=== PATIENT | male | born 1965 | race African-American/Black ===

== ENCOUNTER 2020-08-22 10:19 | Inpatient (IN) | payer OTHER ==
[2020-08-22 11:20] VITALS: BMI 30.5
[2020-08-22] MEDS ORDERED: chlordiazePOXIDE HCL 25 MG CAPSULE PO PRN (11:56)
[2020-08-22] MEDS ORDERED: MAGNESIUM CITRATE 300 ML BOTTLE PO PRN (11:56)
[2020-08-22] MEDS ORDERED: BISMUTH SUBSALICYLATE 262 MG/15 ML BTL PO PRN (11:56)
[2020-08-22] MEDS ORDERED: MAGNESIUM HYDROX 2400MG/30ML ORAL SUSPENSION 30 ML CUP PO PRN (11:56)
[2020-08-22] MEDS ORDERED: MAG HYDROX/AL HYDROX/SIMETH 30 ML UNIT-DOSE CUP PO PRN (11:56)
[2020-08-22] MEDS ORDERED: IBUPROFEN 400 MG TABLET (FP) PO PRN (11:56)
[2020-08-22] MEDS ORDERED: ONDANSETRON *ODT* 4 MG TABLET SL PRN (11:56)
[2020-08-22] MEDS ORDERED: ACETAMINOPHEN 325 MG TABLET (FP) PO PRN ×2 (11:56)
[2020-08-22] MEDS ORDERED: MENTHOL/PHENOL 1 EACH UD MM PRN (11:56)
[2020-08-22] MEDS: chlordiazePOXIDE HCL 25 MG CAPSULE PO SCH ×3 (13:33→22:49)
[2020-08-22] MEDS: PRENATAL VITAMINS W/ FOLIC ACID TABLET (FP) PO SCH (13:35)
[2020-08-22] MEDS: HYDROCHLOROTHIAZIDE 25 MG TABLET (FP) PO SCH (13:35)
[2020-08-22] MEDS: PANTOPRAZOLE 40 MG TABLET PO SCH (13:41)
[2020-08-22] MEDS ORDERED: hydrOXYzine PAMOATE 25 MG CAPSULE (FP) PO SCH (14:00)
[2020-08-22 18:56] LABS: HEMATOCRIT 38.8 % (35.4-49); HEMOGLOBIN 13.2 GM/dL (11.7-16.9); MCHC 33.9 g/dl (32.0-35.9); MEAN CELL VOLUME 94.5 fl (80-96); MEAN PLT VOLUME 9.1 fl (7.5-11.1); PLATELET COUNT 260 K/MM3 (134-434); RBC 4.11 M/mm3 (4.00-5.60); RDW 13.5 % (11.9-15.9)
[2020-08-22 18:58] LABS: POTASSIUM 4.1 mmol/L (3.5-5.1)
[2020-08-22 19:02] LABS: CALCIUM 9.1 mg/dL (8.5-10.1)
[2020-08-22 19:03] LABS: BLOOD UREA NITROGEN 16.8 mg/dL (7-18)
[2020-08-22 19:05] LABS: CREATININE 1.3 mg/dL (0.55-1.3)
[2020-08-22 19:07] LABS: BILIRUBIN,TOTAL 1.8 mg/dL (0.2-1); TOT PROT 7.7 g/dl (6.4-8.2)
[2020-08-22] MEDS: MELATONIN 5 MG TABLETS PO SCH (22:47)
[2020-08-22] MEDS: THIAMINE HCL 100 MG TABLET (FP) PO SCH (22:47)
[2020-08-22] MEDS: hydrOXYzine PAMOATE 25 MG CAPSULE (FP) PO PRN (22:47)
[2020-08-23] MEDS: METHOCARBAMOL 500 MG TABLET PO PRN (06:08)
[2020-08-23] MEDS: chlordiazePOXIDE HCL 25 MG CAPSULE PO SCH (06:09)
[2020-08-23] MEDS ORDERED: IBUPROFEN 400 MG TABLET (FP) PO PRN (09:53)
[2020-08-23] MEDS ORDERED: diazePAM 5 MG TABLET PO PRN (09:55)
[2020-08-23] MEDS ORDERED: LIDOCAINE 5% TOPICAL PATCH TP SCH (10:00)
[2020-08-23] MEDS: PANTOPRAZOLE 40 MG TABLET PO SCH (10:13)
[2020-08-23] MEDS: PRENATAL VITAMINS W/ FOLIC ACID TABLET (FP) PO SCH (10:13)
[2020-08-23] MEDS: HYDROCHLOROTHIAZIDE 25 MG TABLET (FP) PO SCH (11:09)
[2020-08-23] MEDS: diazePAM 5 MG TABLET PO SCH ×2 (17:31→23:11)
[2020-08-23] MEDS ORDERED: LIDOCAINE PATCH REMOVAL MC SCH (22:00)
[2020-08-23] MEDS: MELATONIN 5 MG TABLETS PO SCH (23:10)
[2020-08-23] MEDS: THIAMINE HCL 100 MG TABLET (FP) PO SCH (23:11)
[2020-08-24] MEDS: hydrOXYzine PAMOATE 25 MG CAPSULE (FP) PO PRN (00:33)
[2020-08-24] MEDS: METHOCARBAMOL 500 MG TABLET PO PRN (00:33)
[2020-08-24] MEDS ORDERED: chlordiazePOXIDE HCL 25 MG CAPSULE PO SCH (05:00)
[2020-08-24] MEDS: diazePAM 5 MG TABLET PO SCH (06:41)
[2020-08-24 07:10] VITALS: BP 119/72; PULSE 76; TEMP 97.7
[2020-08-25] MEDS ORDERED: chlordiazePOXIDE HCL 10 MG CAPSULE PO PRN
[2020-08-25] MEDS ORDERED: chlordiazePOXIDE HCL 10 MG CAPSULE PO SCH (05:00)
[2020-08-25] MEDS ORDERED: diazePAM 5 MG TABLET PO SCH (06:00)
[2020-08-26] MEDS ORDERED: chlordiazePOXIDE HCL 10 MG CAPSULE PO SCH (05:00)
[2020-08-26] MEDS ORDERED: diazePAM 5 MG TABLET PO SCH (06:00)
[2020-08-27] MEDS ORDERED: chlordiazePOXIDE HCL 10 MG CAPSULE PO ONE (05:00)
[2020-08-27] MEDS ORDERED: diazePAM 5 MG TABLET PO ONE (06:00)
== END 2020-08-24 09:12 | disposition left against medical advice (07) | DRG 770 ==
LOC: YASAS 10:19 → Y3N 12:17
PROVIDERS: ADMIT Allergy & Immunology; ATTEND Allergy & Immunology
PROC: HZ2ZZZZ Detoxification Services for Substance Abuse Treatment (ICD-10-PCS; principal; 2020-08-22)
DX: F10.230 Alcohol dependence with withdrawal, uncomplicated (principal); F14.20 Cocaine dependence, uncomplicated; F17.210 Nicotine dependence, cigarettes, uncomplicated; I10 Essential (primary) hypertension; K21.9 Gastro-esophageal reflux disease without esophagitis; M54.5 Low back pain; G89.29 Other chronic pain; Z91.018 Allergy to other foods; Z56.0 Unemployment, unspecified
CPT/HCPCS: 36415; 80053; 85027; 86780; 87389; C9803; U0003

== ENCOUNTER 2020-09-19 17:53 | Inpatient (IN) | payer OTHER ==
[2020-09-19 19:19] VITALS: BMI 32.1
[2020-09-19] MEDS ORDERED: LOPERAMIDE HCL 2 MG CAPSULE PO PRN (23:48)
[2020-09-19] MEDS ORDERED: MAG HYDROX/AL HYDROX/SIMETH 30 ML UNIT-DOSE CUP PO PRN (23:48)
[2020-09-19] MEDS ORDERED: guaiFENesin 200 MG/10 ML 10 ML UNIT-DOSE CUPS PO PRN (23:48)
[2020-09-19] MEDS ORDERED: MAGNESIUM HYDROX 2400MG/30ML ORAL SUSPENSION 30 ML CUP PO PRN (23:48)
[2020-09-19] MEDS ORDERED: P-EPHED 60MG/TRIPROLIDI 2.5MG TABLET PO PRN (23:48)
[2020-09-19] MEDS ORDERED: hydrOXYzine PAMOATE 25 MG CAPSULE (FP) PO PRN (23:48)
[2020-09-19] MEDS ORDERED: MAGNESIUM CITRATE 300 ML BOTTLE PO PRN (23:48)
[2020-09-20] MEDS ORDERED: TUBERCULIN PPD 5 TU/0.1ML VIAL ID ONE (00:32)
[2020-09-20] MEDS: MELATONIN 5 MG TABLETS PO SCH ×2 (00:40→22:03)
[2020-09-20] MEDS: IBUPROFEN 400 MG TABLET (FP) PO PRN ×2 (04:42→17:25)
[2020-09-20] MEDS: PRENATAL VITAMINS W/ FOLIC ACID TABLET (FP) PO SCH (10:04)
[2020-09-20] MEDS: ACETAMINOPHEN 325 MG TABLET (FP) PO PRN ×2 (10:06→21:25)
[2020-09-20] MEDS ORDERED: METHYL SALICYLATE/MENTHOL OINT 30 GM TUBE TP ONE (11:15)
[2020-09-20 11:42] LABS: HEMATOCRIT 36.1 % (35.4-49); HEMOGLOBIN 12.5 GM/dL (11.7-16.9); MCH 32.3 pg (25.7-33.7); MCHC 34.5 g/dl (32.0-35.9); MEAN CELL VOLUME 93.7 fl (80-96); MEAN PLT VOLUME 8.8 fl (7.5-11.1); PLATELET COUNT 257 K/MM3 (134-434); RBC 3.86 M/mm3 (4.00-5.60); RDW 13.6 % (11.9-15.9); WHITE BLOOD COUNT 5.1 K/mm3 (4.0-10.0)
[2020-09-20 11:48] LABS: ALBUMIN 3.7 g/dl (3.4-5.0); BLOOD UREA NITROGEN 15.2 mg/dL (7-18)
[2020-09-20 11:50] LABS: BILIRUBIN,TOTAL 1.2 mg/dL (0.2-1); CALCIUM 8.8 mg/dL (8.5-10.1); TOT PROT 7.2 g/dl (6.4-8.2)
[2020-09-20 11:51] LABS: CREATININE 1.4 mg/dL (0.55-1.3)
[2020-09-20 11:55] LABS: POTASSIUM 3.6 mmol/L (3.5-5.1)
[2020-09-20] MEDS ORDERED: THIAMINE HCL 100 MG TABLET (FP) PO SCH (22:00)
[2020-09-20] MEDS: METHYL SALICYLATE/MENTHOL OINT 30 GM TUBE TP SCH (22:03)
[2020-09-21 00:26] LABS: URINE APPEARANCE CLEAR; URINE BILIRUBIN NEGATIVE (NEGATIVE); URINE COLOR YELLOW; URINE GLUCOSE (UA) NEGATIVE (NEGATIVE); URINE KETONE NEGATIVE (NEGATIVE); URINE LEUK ESTERASE NEGATIVE (NEGATIVE); URINE NITRITE NEGATIVE (NEGATIVE); URINE PROTEIN NEGATIVE (NEGATIVE)
[2020-09-21] MEDS: IBUPROFEN 400 MG TABLET (FP) PO PRN (06:13)
[2020-09-21 07:16] VITALS: BP 139/82; PULSE 76; TEMP 98.2
[2020-09-21] MEDS ORDERED: PT OWN MED DRAWER 7, Y5N ONE ×2 (09:37→10:22)
[2020-09-21] MEDS: METHYL SALICYLATE/MENTHOL OINT 30 GM TUBE TP SCH (10:11)
[2020-09-21] MEDS: PRENATAL VITAMINS W/ FOLIC ACID TABLET (FP) PO SCH (10:12)
== END 2020-09-21 19:46 | disposition home or self-care (01) | DRG 772 ==
LOC: YASAS 17:53 → Y5N 23:21
PROVIDERS: ADMIT Allergy & Immunology; ATTEND Allergy & Immunology
PROC: HZ42ZZZ Group Counseling for Substance Abuse Treatment, Cognitive-Behavioral (ICD-10-PCS; principal; 2020-09-19)
DX: F10.20 Alcohol dependence, uncomplicated (principal); F14.20 Cocaine dependence, uncomplicated; I10 Essential (primary) hypertension; K21.9 Gastro-esophageal reflux disease without esophagitis; I83.92 Asymptomatic varicose veins of left lower extremity; R60.0 Localized edema; M79.604 Pain in right leg; M79.605 Pain in left leg; Z87.891 Personal history of nicotine dependence; Z56.0 Unemployment, unspecified; Z59.0 Homelessness; Z91.018 Allergy to other foods
CPT/HCPCS: 36415; 80053; 81003; 85027; 86780; C9803; U0003

== ENCOUNTER 2020-10-18 09:43 | Inpatient (IN) | payer OTHER ==
[2020-10-18 10:14] VITALS: BMI 32.5
[2020-10-18] MEDS ORDERED: MAGNESIUM HYDROX 2400MG/30ML ORAL SUSPENSION 30 ML CUP PO PRN (11:41)
[2020-10-18] MEDS ORDERED: METHOCARBAMOL 500 MG TABLET PO PRN (11:41)
[2020-10-18] MEDS ORDERED: MAGNESIUM CITRATE 300 ML BOTTLE PO PRN (11:41)
[2020-10-18] MEDS ORDERED: ONDANSETRON *ODT* 4 MG TABLET SL PRN (11:41)
[2020-10-18] MEDS ORDERED: NICOTINE POLACRILEX 2 MG GUM BUC PRN (11:41)
[2020-10-18] MEDS ORDERED: IBUPROFEN 400 MG TABLET (FP) PO PRN (11:41)
[2020-10-18] MEDS ORDERED: chlordiazePOXIDE HCL 25 MG CAPSULE PO PRN (11:41)
[2020-10-18] MEDS ORDERED: ACETAMINOPHEN 325 MG TABLET (FP) PO PRN ×2 (11:41)
[2020-10-18] MEDS ORDERED: MENTHOL/PHENOL 1 EACH UD MM PRN (11:41)
[2020-10-18] MEDS ORDERED: BISMUTH SUBSALICYLATE 524 MG/30 ML UD PO PRN (11:41)
[2020-10-18] MEDS ORDERED: MAG HYDROX/AL HYDROX/SIMETH 30 ML UNIT-DOSE CUP PO PRN (11:41)
[2020-10-18] MEDS ORDERED: PRENATAL VITAMINS W/ FOLIC ACID TABLET (FP) PO SCH (11:45)
[2020-10-18] MEDS: chlordiazePOXIDE HCL 25 MG CAPSULE PO SCH ×2 (12:41→18:18)
[2020-10-18] MEDS: hydrOXYzine PAMOATE 25 MG CAPSULE (FP) PO SCH ×2 (13:05→18:18)
[2020-10-18 14:19] LABS: HEMATOCRIT 37.9 % (35.4-49); HEMOGLOBIN 12.5 GM/dL (11.7-16.9); MCH 31.7 pg (25.7-33.7); MCHC 33.1 g/dl (32.0-35.9); MEAN CELL VOLUME 95.8 fl (80-96); MEAN PLT VOLUME 9.1 fl (7.5-11.1); PLATELET COUNT 246 K/MM3 (134-434); RBC 3.95 M/mm3 (4.00-5.60); RDW 14.3 % (11.9-15.9); WHITE BLOOD COUNT 4.5 K/mm3 (4.0-10.0)
[2020-10-18 14:22] LABS: POTASSIUM 3.9 mmol/L (3.5-5.1)
[2020-10-18 14:24] LABS: CALCIUM 9.4 mg/dL (8.5-10.1)
[2020-10-18 14:25] LABS: ALBUMIN 3.9 g/dl (3.4-5.0); BLOOD UREA NITROGEN 12.6 mg/dL (7-18)
[2020-10-18 14:28] LABS: CREATININE 1.2 mg/dL (0.55-1.3)
[2020-10-18 14:29] LABS: BILIRUBIN,TOTAL 0.4 mg/dL (0.2-1); TOT PROT 7.6 g/dl (6.4-8.2)
[2020-10-18 17:32] VITALS: BP 108/68; PULSE 80; TEMP 96.8
[2020-10-18] MEDS ORDERED: MELATONIN 5 MG TABLETS PO SCH (22:00)
[2020-10-18] MEDS ORDERED: THIAMINE HCL 100 MG TABLET (FP) PO SCH (22:00)
[2020-10-19] MEDS ORDERED: HYDROCHLOROTHIAZIDE 25 MG TABLET (FP) PO SCH (10:00)
[2020-10-20] MEDS ORDERED: chlordiazePOXIDE HCL 25 MG CAPSULE PO SCH (05:00)
[2020-10-21] MEDS ORDERED: chlordiazePOXIDE HCL 10 MG CAPSULE PO PRN
[2020-10-21] MEDS ORDERED: chlordiazePOXIDE HCL 10 MG CAPSULE PO SCH (05:00)
[2020-10-22] MEDS ORDERED: chlordiazePOXIDE HCL 10 MG CAPSULE PO SCH (05:00)
[2020-10-23] MEDS ORDERED: chlordiazePOXIDE HCL 10 MG CAPSULE PO ONE (05:00)
== END 2020-10-18 18:55 | disposition left against medical advice (07) | DRG 770 ==
LOC: YASAS 09:43 → Y3N 12:04
PROVIDERS: ADMIT Allergy & Immunology; ATTEND Allergy & Immunology
PROC: HZ2ZZZZ Detoxification Services for Substance Abuse Treatment (ICD-10-PCS; principal; 2020-10-18)
DX: F10.230 Alcohol dependence with withdrawal, uncomplicated (principal); F14.20 Cocaine dependence, uncomplicated; F17.210 Nicotine dependence, cigarettes, uncomplicated; F32.9 Major depressive disorder, single episode, unspecified; I10 Essential (primary) hypertension; K21.9 Gastro-esophageal reflux disease without esophagitis; I83.92 Asymptomatic varicose veins of left lower extremity; M54.5 Low back pain; Z59.0 Homelessness
CPT/HCPCS: 36415; 80053; 85027; 86780; C9803; U0003; U0005

== ENCOUNTER 2020-12-14 19:54 | Inpatient (IN) | payer OTHER ==
[2020-12-14] MEDS ORDERED: MENTHOL/PHENOL 1 EACH UD MM PRN (21:48)
[2020-12-14] MEDS ORDERED: IBUPROFEN 400 MG TABLET (FP) PO PRN (21:48)
[2020-12-14] MEDS ORDERED: ACETAMINOPHEN 325 MG TABLET (FP) PO PRN ×2 (21:48)
[2020-12-14] MEDS ORDERED: BISMUTH SUBSALICYLATE 524 MG/30 ML PO PRN (21:48)
[2020-12-14] MEDS ORDERED: ONDANSETRON *ODT* 4 MG TABLET SL PRN (21:48)
[2020-12-14] MEDS ORDERED: MAGNESIUM CITRATE 300 ML BOTTLE PO PRN (21:48)
[2020-12-14] MEDS ORDERED: MAG HYDROX/AL HYDROX/SIMETH 30 ML UNIT-DOSE CUP PO PRN (21:48)
[2020-12-14] MEDS ORDERED: MAGNESIUM HYDROX 2400MG/30ML ORAL SUSPENSION 30 ML CUP PO PRN (21:48)
[2020-12-14] MEDS ORDERED: diazePAM 5 MG TABLET PO PRN (21:48)
[2020-12-14 23:05] VITALS: BMI 30.8
[2020-12-15] MEDS: MELATONIN 5 MG TABLETS PO SCH ×2 (00:21→22:30)
[2020-12-15] MEDS: THIAMINE HCL 100 MG TABLET (FP) PO SCH ×2 (00:21→22:30)
[2020-12-15] MEDS: diazePAM 5 MG TABLET PO SCH ×5 (00:22→22:30)
[2020-12-15] MEDS: METHOCARBAMOL 500 MG TABLET PO PRN ×2 (07:22→19:34)
[2020-12-15] MEDS ORDERED: PRENATAL VITAMINS W/ FOLIC ACID TABLET (FP) PO SCH (10:00)
[2020-12-15] MEDS ORDERED: HYDROCHLOROTHIAZIDE 25 MG TABLET (FP) PO SCH (10:00)
[2020-12-16] MEDS: METHOCARBAMOL 500 MG TABLET PO PRN (05:28)
[2020-12-16] MEDS ORDERED: diazePAM 5 MG TABLET PO SCH (06:00)
[2020-12-16 06:39] VITALS: BP 117/78; PULSE 77; TEMP 97
[2020-12-17] MEDS ORDERED: diazePAM 5 MG TABLET PO SCH (06:00)
[2020-12-18] MEDS ORDERED: diazePAM 5 MG TABLET PO ONE (06:00)
== END 2020-12-16 06:34 | disposition left against medical advice (07) | DRG 770 ==
LOC: YASAS 19:54 → Y3N 22:57
PROVIDERS: ADMIT Allergy & Immunology; ATTEND Allergy & Immunology
PROC: HZ2ZZZZ Detoxification Services for Substance Abuse Treatment (ICD-10-PCS; principal; 2020-12-14)
DX: F10.230 Alcohol dependence with withdrawal, uncomplicated (principal); F14.20 Cocaine dependence, uncomplicated; G47.00 Insomnia, unspecified; I10 Essential (primary) hypertension; K21.9 Gastro-esophageal reflux disease without esophagitis; M54.5 Low back pain; V59.9XXA Occupant (driver) (passenger) of pick-up truck or van injured in unspecified traffic accident, initial encounter; Y92.414 Local residential or business street as the place of occurrence of the external cause; Z87.891 Personal history of nicotine dependence; Z56.0 Unemployment, unspecified; Z59.0 Homelessness
CPT/HCPCS: 93005; 93010; C9803; U0003; U0005

== ENCOUNTER 2020-12-15 11:43 | Emergency (ER) | payer OTHER ==
[2020-12-15 12:13] VITALS: BMI 33.7
[2020-12-15] MEDS ORDERED: ACETAMINOPHEN 500 MG TABLET (FP) PO ONE (12:36)
[2020-12-15] MEDS ORDERED: ACETAMINOPHEN 325 MG TABLET (FP) ONE ×2 (12:57→13:02)
[2020-12-15 14:18] VITALS: BP 118/76; PULSE 60; TEMP 98.2
== END 2020-12-15 14:18 | disposition home or self-care (01) ==
LOC: JER 11:43
DX: M54.5 Low back pain (principal)
CPT/HCPCS: 72100-TC-FY; 99284-25

== ENCOUNTER 2021-05-21 14:00 | Inpatient (IN) | payer OTHER ==
[2021-05-21 16:14] VITALS: BMI 32.2
[2021-05-21] MEDS ORDERED: METHOCARBAMOL 500 MG TABLET PO PRN (21:47)
[2021-05-21] MEDS ORDERED: IBUPROFEN 400 MG TABLET (FP) PO PRN (21:47)
[2021-05-21] MEDS ORDERED: MAG HYDROX/AL HYDROX/SIMETH 30 ML UNIT-DOSE CUP PO PRN (21:47)
[2021-05-21] MEDS ORDERED: MAGNESIUM CITRATE 300 ML BOTTLE PO PRN (21:47)
[2021-05-21] MEDS ORDERED: BISMUTH SUBSALICYLATE 524 MG/30 ML PO PRN (21:47)
[2021-05-21] MEDS ORDERED: MAGNESIUM HYDROX 2400MG/30ML ORAL SUSPENSION 30 ML CUP PO PRN (21:47)
[2021-05-21] MEDS ORDERED: diazePAM 5 MG TABLET PO PRN (21:47)
[2021-05-21] MEDS ORDERED: ACETAMINOPHEN 325 MG TABLET (FP) PO PRN ×2 (21:47)
[2021-05-21] MEDS ORDERED: MENTHOL/PHENOL 1 EACH UD MM PRN (21:47)
[2021-05-21] MEDS ORDERED: ONDANSETRON *ODT* 4 MG TABLET SL PRN (21:47)
[2021-05-21] MEDS ORDERED: hydrOXYzine PAMOATE 25 MG CAPSULE (FP) PO PRN (21:47)
[2021-05-21] MEDS ORDERED: MELATONIN 5 MG TABLETS PO PRN (21:47)
[2021-05-21] MEDS ORDERED: THIAMINE HCL 100 MG TABLET (FP) PO SCH (22:00)
[2021-05-21] MEDS: diazePAM 5 MG TABLET PO SCH (22:52)
[2021-05-22 05:43] VITALS: BP 108/58; PULSE 57; TEMP 97.8
[2021-05-22] MEDS: diazePAM 5 MG TABLET PO SCH (06:00)
[2021-05-22] MEDS ORDERED: PRENATAL VITAMINS W/ FOLIC ACID TABLET (FP) PO SCH (10:00)
[2021-05-22] MEDS ORDERED: HYDROCHLOROTHIAZIDE 25 MG TABLET (FP) PO SCH (10:00)
[2021-05-23] MEDS ORDERED: diazePAM 5 MG TABLET PO SCH (06:00)
[2021-05-24] MEDS ORDERED: diazePAM 5 MG TABLET PO SCH (06:00)
[2021-05-25] MEDS ORDERED: diazePAM 5 MG TABLET PO ONE (06:00)
== END 2021-05-22 09:00 | disposition left against medical advice (07) | DRG 770 ==
LOC: YASAS 14:00 → Y6N 20:57
PROVIDERS: ADMIT Allergy & Immunology; ATTEND Allergy & Immunology
PROC: HZ2ZZZZ Detoxification Services for Substance Abuse Treatment (ICD-10-PCS; principal; 2021-05-21)
DX: F10.230 Alcohol dependence with withdrawal, uncomplicated (principal); F14.20 Cocaine dependence, uncomplicated; I10 Essential (primary) hypertension; K21.9 Gastro-esophageal reflux disease without esophagitis; M54.50 Low back pain, unspecified; G89.29 Other chronic pain
CPT/HCPCS: C9803; U0003; U0005

== ENCOUNTER 2021-07-03 17:59 | Inpatient (IN) | payer OTHER ==
[2021-07-03 18:15] VITALS: BMI 32.1
[2021-07-03] MEDS ORDERED: MAG HYDROX/AL HYDROX/SIMETH 30 ML UNIT-DOSE CUP PO PRN (18:30)
[2021-07-03] MEDS ORDERED: BISMUTH SUBSALICYLATE 524 MG/30 ML PO PRN (18:30)
[2021-07-03] MEDS ORDERED: MAGNESIUM CITRATE 300 ML BOTTLE PO PRN (18:30)
[2021-07-03] MEDS ORDERED: hydrOXYzine PAMOATE 25 MG CAPSULE (FP) PO PRN (18:30)
[2021-07-03] MEDS ORDERED: P-EPHED 60MG/TRIPROLIDI 2.5MG TABLET PO PRN (18:30)
[2021-07-03] MEDS ORDERED: ACETAMINOPHEN 325 MG TABLET (FP) PO PRN ×2 (18:30)
[2021-07-03] MEDS ORDERED: MENTHOL/PHENOL 1 EACH UD MM PRN (18:30)
[2021-07-03] MEDS ORDERED: ONDANSETRON *ODT* 4 MG TABLET SL PRN (18:30)
[2021-07-03] MEDS ORDERED: MAGNESIUM HYDROX 2400MG/30ML ORAL SUSPENSION 30 ML CUP PO PRN (18:30)
[2021-07-03] MEDS ORDERED: diazePAM 5 MG TABLET PO PRN (18:31)
[2021-07-03] MEDS: IBUPROFEN 400 MG TABLET (FP) PO PRN (20:03)
[2021-07-03] MEDS: MELATONIN 5 MG TABLETS PO SCH (23:02)
[2021-07-03] MEDS: diazePAM 5 MG TABLET PO SCH (23:03)
[2021-07-03] MEDS: THIAMINE HCL 100 MG TABLET (FP) PO SCH (23:03)
[2021-07-04] MEDS: diazePAM 5 MG TABLET PO SCH ×3 (06:06→19:54)
[2021-07-04] MEDS: PRENATAL VITAMINS W/ FOLIC ACID TABLET (FP) PO SCH (10:38)
[2021-07-04] MEDS: METHOCARBAMOL 500 MG TABLET PO PRN (10:38)
[2021-07-04] MEDS: HYDROCHLOROTHIAZIDE 25 MG TABLET (FP) PO SCH (10:38)
[2021-07-04 10:52] LABS: ALBUMIN 3.5 g/dl (3.4-5.0); BLOOD UREA NITROGEN 20.6 mg/dL (7-18); CALCIUM 9.1 mg/dL (8.5-10.1)
[2021-07-04 10:53] LABS: CREATININE 1.1 mg/dL (0.55-1.3)
[2021-07-04 10:58] LABS: BILIRUBIN,TOTAL 0.9 mg/dL (0.2-1)
[2021-07-04 10:59] LABS: HEMATOCRIT 37.3 % (35.4-49); HEMOGLOBIN 12.6 GM/dL (11.7-16.9); MCH 31.7 pg (25.7-33.7); MCHC 33.9 g/dl (32.0-35.9); MEAN CELL VOLUME 93.4 fl (80-96); MEAN PLT VOLUME 8.5 fl (7.5-11.1); PLATELET COUNT 233 10^3/uL (134-434); RBC 3.99 M/mm3 (4.00-5.60); RDW 13.8 % (11.9-15.9)
[2021-07-04] MEDS: amLODIPine BESYLATE 10 MG TABLET (FP) PO SCH (15:27)
[2021-07-04] MEDS: THIAMINE HCL 100 MG TABLET (FP) PO SCH (22:29)
[2021-07-04] MEDS: MELATONIN 5 MG TABLETS PO SCH (22:30)
[2021-07-05] MEDS: diazePAM 5 MG TABLET PO SCH ×3 (01:03→19:08)
[2021-07-05] MEDS: METHOCARBAMOL 500 MG TABLET PO PRN (07:31)
[2021-07-05] MEDS: IBUPROFEN 400 MG TABLET (FP) PO PRN (07:31)
[2021-07-05] MEDS: PRENATAL VITAMINS W/ FOLIC ACID TABLET (FP) PO SCH (10:41)
[2021-07-05] MEDS: HYDROCHLOROTHIAZIDE 25 MG TABLET (FP) PO SCH (10:42)
[2021-07-05] MEDS: amLODIPine BESYLATE 10 MG TABLET (FP) PO SCH (10:42)
[2021-07-05 18:53] VITALS: BP 118/79; PULSE 103; TEMP 96.9
[2021-07-06] MEDS ORDERED: diazePAM 5 MG TABLET PO ONE (06:00)
== END 2021-07-05 18:25 | disposition left against medical advice (07) | DRG 770 ==
LOC: YASAS 17:59 → Y6N 19:00 → UNDOADMIN 19:00
PROVIDERS: ADMIT Allergy & Immunology; ATTEND Allergy & Immunology
PROC: HZ2ZZZZ Detoxification Services for Substance Abuse Treatment (ICD-10-PCS; principal; 2021-07-03)
DX: F10.230 Alcohol dependence with withdrawal, uncomplicated (principal); F14.20 Cocaine dependence, uncomplicated; I10 Essential (primary) hypertension; K21.9 Gastro-esophageal reflux disease without esophagitis; R00.0 Tachycardia, unspecified; E66.9 Obesity, unspecified; Z68.32 Body mass index [BMI] 32.0-32.9, adult; Z91.018 Allergy to other foods; Z56.0 Unemployment, unspecified
CPT/HCPCS: 36415; 80053; 85027; 86780; C9803; Q0162; U0003; U0005

== ENCOUNTER 2021-09-06 18:09 | Inpatient (IN) | payer OTHER ==
[2021-09-06 18:55] VITALS: BMI 32.2
[2021-09-06] MEDS ORDERED: BISMUTH SUBSALICYLATE 524 MG/30 ML PO PRN (20:16)
[2021-09-06] MEDS ORDERED: MAGNESIUM CITRATE 300 ML BOTTLE PO PRN (20:16)
[2021-09-06] MEDS ORDERED: LOPERAMIDE HCL 2 MG CAPSULE PO PRN (20:16)
[2021-09-06] MEDS ORDERED: MENTHOL/PHENOL 1 EACH UD MM PRN (20:16)
[2021-09-06] MEDS ORDERED: hydrOXYzine PAMOATE 25 MG CAPSULE (FP) PO PRN (20:16)
[2021-09-06] MEDS ORDERED: MELATONIN 5 MG TABLETS PO PRN (20:16)
[2021-09-06] MEDS ORDERED: ONDANSETRON *ODT* 4 MG TABLET SL PRN (20:16)
[2021-09-06] MEDS ORDERED: MAGNESIUM HYDROX 2400MG/30ML ORAL SUSPENSION 30 ML CUP PO PRN (20:16)
[2021-09-06] MEDS ORDERED: ACETAMINOPHEN 325 MG TABLET (FP) PO PRN ×2 (20:16)
[2021-09-06] MEDS ORDERED: diazePAM 5 MG TABLET PO PRN (20:18)
[2021-09-06] MEDS ORDERED: ONDANSETRON *ODT* 4 MG TABLET ONE (23:23)
[2021-09-06] MEDS ORDERED: diazePAM 5 MG TABLET ONE (23:23)
[2021-09-06] MEDS: THIAMINE HCL 100 MG TABLET (FP) PO SCH (23:27)
[2021-09-06] MEDS: diazePAM 5 MG TABLET PO SCH (23:28)
[2021-09-07] MEDS: diazePAM 5 MG TABLET PO SCH ×4 (06:54→22:21)
[2021-09-07] MEDS: IBUPROFEN 400 MG TABLET (FP) PO PRN (06:55)
[2021-09-07] MEDS: METHOCARBAMOL 500 MG TABLET PO PRN (10:58)
[2021-09-07] MEDS: PRENATAL VITAMINS W/ FOLIC ACID TABLET (FP) PO SCH (10:59)
[2021-09-07] MEDS: THIAMINE HCL 100 MG TABLET (FP) PO SCH (22:21)
[2021-09-08] MEDS: IBUPROFEN 400 MG TABLET (FP) PO PRN ×2 (01:54→20:47)
[2021-09-08] MEDS: diazePAM 5 MG TABLET PO SCH ×3 (06:38→22:06)
[2021-09-08] MEDS: PRENATAL VITAMINS W/ FOLIC ACID TABLET (FP) PO SCH (11:08)
[2021-09-08] MEDS: THIAMINE HCL 100 MG TABLET (FP) PO SCH (22:07)
[2021-09-09] MEDS: METHOCARBAMOL 500 MG TABLET PO PRN (04:05)
[2021-09-09] MEDS ORDERED: diazePAM 5 MG TABLET PO SCH (06:00)
[2021-09-09] MEDS: PRENATAL VITAMINS W/ FOLIC ACID TABLET (FP) PO SCH (10:33)
[2021-09-09] MEDS ORDERED: diphenhydrAMINE HCL 50 MG CAPSULE PO PRN (15:50)
[2021-09-09] MEDS ORDERED: diphenhydrAMINE HCL 25 MG CAPSULE (FP) PO PRN (15:53)
[2021-09-09] MEDS ORDERED: LOPERAMIDE HCL 2 MG CAPSULE PO ONE (15:58)
[2021-09-09] MEDS ORDERED: LORazepam 0.5 MG TABLET PO ONE (18:00)
[2021-09-09] MEDS: HYDROCHLOROTHIAZIDE 12.5 MG CAPSULE (FP) PO SCH (19:08)
[2021-09-10] MEDS: THIAMINE HCL 100 MG TABLET (FP) PO SCH (00:06)
[2021-09-10] MEDS: IBUPROFEN 400 MG TABLET (FP) PO PRN (03:40)
[2021-09-10] MEDS ORDERED: LORazepam 0.5 MG TABLET PO ONE (05:00)
[2021-09-10] MEDS ORDERED: diazePAM 5 MG TABLET PO ONE (06:00)
[2021-09-10] MEDS: MAG HYDROX/AL HYDROX/SIMETH 30 ML UNIT-DOSE CUP PO PRN ×2 (06:00→13:15)
[2021-09-10] MEDS: PRENATAL VITAMINS W/ FOLIC ACID TABLET (FP) PO SCH (09:37)
[2021-09-10] MEDS: HYDROCHLOROTHIAZIDE 12.5 MG CAPSULE (FP) PO SCH (09:37)
[2021-09-10 16:39] LABS: HEMATOCRIT 37.1 % (35.4-49); HEMOGLOBIN 12.2 GM/dL (11.7-16.9); MCH 30.6 pg (25.7-33.7); MCHC 32.9 g/dl (32.0-35.9); MEAN CELL VOLUME 92.9 fl (80-96); MEAN PLT VOLUME 8.6 fl (7.5-11.1); PLATELET COUNT 312 10^3/uL (134-434); RBC 3.99 M/mm3 (4.00-5.60); RDW 14.4 % (11.9-15.9); WHITE BLOOD COUNT 3.9 K/mm3 (4.0-10.0)
[2021-09-10 16:47] LABS: ALBUMIN 3.7 g/dl (3.4-5.0); BLOOD UREA NITROGEN 9.5 mg/dL (7-18)
[2021-09-10 16:50] LABS: CREATININE 1.1 mg/dL (0.55-1.3)
[2021-09-10 16:51] LABS: BILIRUBIN,TOTAL 0.5 mg/dL (0.2-1); TOT PROT 7.4 g/dl (6.4-8.2)
[2021-09-10 17:55] VITALS: BP 128/61; PULSE 77; TEMP 97.3
== END 2021-09-10 18:45 | disposition other institution (70) | DRG 774 ==
LOC: YASAS 18:09 → Y6N 09-07 01:41
PROVIDERS: ADMIT Allergy & Immunology; ATTEND Allergy & Immunology
PROC: HZ2ZZZZ Detoxification Services for Substance Abuse Treatment (ICD-10-PCS; principal; 2021-09-07)
DX: F10.230 Alcohol dependence with withdrawal, uncomplicated (principal); F14.20 Cocaine dependence, uncomplicated; I10 Essential (primary) hypertension; K21.9 Gastro-esophageal reflux disease without esophagitis; M54.50 Low back pain, unspecified; G89.29 Other chronic pain
CPT/HCPCS: 36415; 80053; 85027; 86780; 87811; C9803; Q0162; U0003; U0005

== ENCOUNTER 2021-09-10 09:34 | Inpatient (IN) | payer OTHER ==
[2021-09-10] MEDS ORDERED: guaiFENesin 200 MG/10 ML 10 ML UNIT-DOSE CUPS PO PRN (14:56)
[2021-09-10] MEDS ORDERED: NICOTINE POLACRILEX 2 MG GUM BUC PRN (14:56)
[2021-09-10] MEDS ORDERED: MAGNESIUM HYDROX 2400MG/30ML ORAL SUSPENSION 30 ML CUP PO PRN (14:56)
[2021-09-10] MEDS ORDERED: NICOTINE 10 MG CARTRIDGE (INHALER) IH PRN (14:56)
[2021-09-10] MEDS ORDERED: MAG HYDROX/AL HYDROX/SIMETH 30 ML UNIT-DOSE CUP PO PRN (14:56)
[2021-09-10] MEDS ORDERED: hydrOXYzine PAMOATE 25 MG CAPSULE (FP) PO PRN (14:56)
[2021-09-10] MEDS ORDERED: MAGNESIUM CITRATE 300 ML BOTTLE PO PRN (14:56)
[2021-09-10] MEDS ORDERED: LOPERAMIDE HCL 2 MG CAPSULE PO PRN (14:56)
[2021-09-10] MEDS ORDERED: ACETAMINOPHEN 325 MG TABLET (FP) PO PRN (14:56)
[2021-09-10] MEDS: IBUPROFEN 400 MG TABLET (FP) PO PRN (21:45)
[2021-09-10] MEDS: THIAMINE HCL 100 MG TABLET (FP) PO SCH (21:45)
[2021-09-10] MEDS: MELATONIN 5 MG TABLETS PO SCH (21:46)
[2021-09-11] MEDS: HYDROCHLOROTHIAZIDE 12.5 MG CAPSULE (FP) PO SCH (09:14)
[2021-09-11] MEDS: PRENATAL VITAMINS W/ FOLIC ACID TABLET (FP) PO SCH (09:15)
[2021-09-11] MEDS ORDERED: ONDANSETRON *ODT* 4 MG TABLET SL PRN (11:09)
[2021-09-11] MEDS: THIAMINE HCL 100 MG TABLET (FP) PO SCH (21:18)
[2021-09-11] MEDS: MELATONIN 5 MG TABLETS PO SCH (21:18)
[2021-09-12] MEDS: PRENATAL VITAMINS W/ FOLIC ACID TABLET (FP) PO SCH (09:57)
[2021-09-12] MEDS: HYDROCHLOROTHIAZIDE 12.5 MG CAPSULE (FP) PO SCH (09:58)
[2021-09-12] MEDS ORDERED: diphenhydrAMINE HCL 50 MG CAPSULE PO PRN (10:11)
[2021-09-12] MEDS ORDERED: diphenhydrAMINE HCL 25 MG CAPSULE (FP) PO ONE (21:43)
[2021-09-12] MEDS: THIAMINE HCL 100 MG TABLET (FP) PO SCH (21:44)
[2021-09-12] MEDS ORDERED: SUVOREXANT 10 MG TABLET PO PRN (22:00)
[2021-09-13] MEDS: PRENATAL VITAMINS W/ FOLIC ACID TABLET (FP) PO SCH (10:07)
[2021-09-13] MEDS: HYDROCHLOROTHIAZIDE 12.5 MG CAPSULE (FP) PO SCH (10:07)
[2021-09-13] MEDS ORDERED: diphenhydrAMINE HCL 25 MG CAPSULE (FP) PO ONE (19:32)
[2021-09-13] MEDS: THIAMINE HCL 100 MG TABLET (FP) PO SCH (21:26)
[2021-09-14] MEDS: IBUPROFEN 400 MG TABLET (FP) PO PRN (06:33)
[2021-09-14] MEDS: PRENATAL VITAMINS W/ FOLIC ACID TABLET (FP) PO SCH (10:49)
[2021-09-14] MEDS: HYDROCHLOROTHIAZIDE 12.5 MG CAPSULE (FP) PO SCH (10:50)
[2021-09-14 16:09] LABS: SARS-CoV-2 NAA Not Detected (Not Detected)
[2021-09-14] MEDS: THIAMINE HCL 100 MG TABLET (FP) PO SCH (21:42)
[2021-09-15] MEDS: HYDROCHLOROTHIAZIDE 12.5 MG CAPSULE (FP) PO SCH (09:37)
[2021-09-15] MEDS: PRENATAL VITAMINS W/ FOLIC ACID TABLET (FP) PO SCH (09:37)
[2021-09-15] MEDS ORDERED: diphenhydrAMINE HCL 25 MG CAPSULE (FP) PO ONE (20:10)
[2021-09-15] MEDS: IBUPROFEN 400 MG TABLET (FP) PO PRN (21:31)
[2021-09-15] MEDS: diphenhydrAMINE HCL 50 MG CAPSULE PO PRN (21:33)
[2021-09-15] MEDS: THIAMINE HCL 100 MG TABLET (FP) PO SCH (21:33)
[2021-09-16] MEDS: PRENATAL VITAMINS W/ FOLIC ACID TABLET (FP) PO SCH (09:17)
[2021-09-16] MEDS: HYDROCHLOROTHIAZIDE 12.5 MG CAPSULE (FP) PO SCH (09:17)
[2021-09-16] MEDS ORDERED: diphenhydrAMINE HCL 25 MG CAPSULE (FP) PO ONE (20:41)
[2021-09-16] MEDS: HYDROCORTISONE 0.5% TOPICAL CREAM 30 GM TUBE TP SCH (22:38)
[2021-09-16] MEDS: THIAMINE HCL 100 MG TABLET (FP) PO SCH (22:39)
[2021-09-16] MEDS: diphenhydrAMINE HCL 50 MG CAPSULE PO PRN (22:40)
[2021-09-17] MEDS: HYDROCHLOROTHIAZIDE 12.5 MG CAPSULE (FP) PO SCH (09:51)
[2021-09-17] MEDS: PRENATAL VITAMINS W/ FOLIC ACID TABLET (FP) PO SCH (09:51)
[2021-09-17] MEDS: HYDROCORTISONE 0.5% TOPICAL CREAM 30 GM TUBE TP SCH ×2 (09:52→22:12)
[2021-09-17] MEDS: IBUPROFEN 400 MG TABLET (FP) PO PRN (11:26)
[2021-09-17] MEDS ORDERED: COLLOIDAL OATMEAL 1 BAR EACH TP PRN (11:27)
[2021-09-17] MEDS: CALAMINE 8% TOPICAL LOTION 177 ML BOTTLE TP PRN ×2 (14:25→22:13)
[2021-09-17] MEDS: MINERAL OIL/PETROLAT/WATER TOPICAL CREAM 113 GM JAR TP SCH (14:25)
[2021-09-17] MEDS ORDERED: diphenhydrAMINE HCL 25 MG CAPSULE (FP) PO ONE (22:11)
[2021-09-17] MEDS: THIAMINE HCL 100 MG TABLET (FP) PO SCH (22:12)
[2021-09-18 07:18] VITALS: BP 118/63; PULSE 86; TEMP 97.3
[2021-09-18] MEDS: HYDROCHLOROTHIAZIDE 12.5 MG CAPSULE (FP) PO SCH (09:21)
[2021-09-18] MEDS: HYDROCORTISONE 0.5% TOPICAL CREAM 30 GM TUBE TP SCH (09:22)
[2021-09-18] MEDS: MINERAL OIL/PETROLAT/WATER TOPICAL CREAM 113 GM JAR TP SCH (09:22)
[2021-09-18] MEDS: PRENATAL VITAMINS W/ FOLIC ACID TABLET (FP) PO SCH (09:22)
== END 2021-09-18 09:30 | disposition home or self-care (01) | DRG 772 ==
LOC: YASAS 09:34 → Y5N 09:37
PROVIDERS: ADMIT Allergy & Immunology; ATTEND Allergy & Immunology
PROC: HZ42ZZZ Group Counseling for Substance Abuse Treatment, Cognitive-Behavioral (ICD-10-PCS; principal; 2021-09-10)
DX: F10.20 Alcohol dependence, uncomplicated (principal); F14.20 Cocaine dependence, uncomplicated; F31.9 Bipolar disorder, unspecified; F19.282 Other psychoactive substance dependence with psychoactive substance-induced sleep disorder; F19.24 Other psychoactive substance dependence with psychoactive substance-induced mood disorder; I10 Essential (primary) hypertension; K21.9 Gastro-esophageal reflux disease without esophagitis; L25.9 Unspecified contact dermatitis, unspecified cause; M54.50 Low back pain, unspecified; G89.29 Other chronic pain; Z56.0 Unemployment, unspecified; Z59.02 Unsheltered homelessness
CPT/HCPCS: C9803; Q0162; U0003; U0005

== ENCOUNTER 2021-10-21 11:55 | Inpatient (IN) | payer OTHER ==
[2021-10-21] MEDS ORDERED: BISMUTH SUBSALICYLATE 524 MG/30 ML PO PRN (13:01)
[2021-10-21] MEDS ORDERED: ACETAMINOPHEN 325 MG TABLET (FP) PO PRN ×2 (13:01)
[2021-10-21] MEDS ORDERED: hydrOXYzine PAMOATE 25 MG CAPSULE (FP) PO PRN (13:01)
[2021-10-21] MEDS ORDERED: LOPERAMIDE HCL 2 MG CAPSULE PO PRN (13:01)
[2021-10-21] MEDS ORDERED: ONDANSETRON *ODT* 4 MG TABLET SL PRN (13:01)
[2021-10-21] MEDS ORDERED: MAGNESIUM HYDROX 2400MG/30ML ORAL SUSPENSION 30 ML CUP PO PRN (13:01)
[2021-10-21] MEDS ORDERED: MENTHOL/PHENOL 1 EACH UD MM PRN (13:01)
[2021-10-21] MEDS ORDERED: METHOCARBAMOL 500 MG TABLET PO PRN (13:01)
[2021-10-21] MEDS ORDERED: DICYCLOMINE HCL 10 MG CAPSULE PO PRN (13:01)
[2021-10-21] MEDS ORDERED: MAGNESIUM CITRATE 300 ML BOTTLE PO PRN (13:01)
[2021-10-21] MEDS ORDERED: MAG HYDROX/AL HYDROX/SIMETH 30 ML UNIT-DOSE CUP PO PRN (13:01)
[2021-10-21] MEDS ORDERED: P-EPHED 60MG/TRIPROLIDI 2.5MG TABLET PO PRN (13:01)
[2021-10-21] MEDS ORDERED: diazePAM 5 MG TABLET PO PRN (13:02)
[2021-10-21 13:41] VITALS: BMI 33.1
[2021-10-21] MEDS: IBUPROFEN 400 MG TABLET (FP) PO PRN (14:58)
[2021-10-21] MEDS: diazePAM 5 MG TABLET PO SCH ×2 (17:45→22:18)
[2021-10-21] MEDS: THIAMINE HCL 100 MG TABLET (FP) PO SCH (22:18)
[2021-10-21] MEDS: MELATONIN 5 MG TABLETS PO PRN (22:18)
[2021-10-22] MEDS: diazePAM 5 MG TABLET PO SCH ×4 (04:55→22:01)
[2021-10-22] MEDS: IBUPROFEN 400 MG TABLET (FP) PO PRN (04:55)
[2021-10-22] MEDS: PRENATAL VITAMINS W/ FOLIC ACID TABLET (FP) PO SCH (10:22)
[2021-10-22 14:40] LABS: HEMATOCRIT 37.1 % (35.4-49); HEMOGLOBIN 12.4 GM/dL (11.7-16.9); MCH 31.3 pg (25.7-33.7); MCHC 33.5 g/dl (32.0-35.9); MEAN CELL VOLUME 93.4 fl (80-96); PLATELET COUNT 215 10^3/uL (134-434); RBC 3.97 M/mm3 (4.00-5.60); RDW 15.2 % (11.9-15.9); WHITE BLOOD COUNT 4.3 K/mm3 (4.0-10.0)
[2021-10-22 14:57] LABS: BLOOD UREA NITROGEN 12.5 mg/dL (7-18); CALCIUM 9.2 mg/dL (8.5-10.1)
[2021-10-22 14:58] LABS: ALBUMIN 3.8 g/dl (3.4-5.0)
[2021-10-22 15:00] LABS: CREATININE 1.2 mg/dL (0.55-1.3)
[2021-10-22 15:01] LABS: BILIRUBIN,TOTAL 0.7 mg/dL (0.2-1); TOT PROT 7.3 g/dl (6.4-8.2)
[2021-10-22] MEDS: MELATONIN 5 MG TABLETS PO PRN (21:58)
[2021-10-22] MEDS: THIAMINE HCL 100 MG TABLET (FP) PO SCH (21:58)
[2021-10-23] MEDS: IBUPROFEN 400 MG TABLET (FP) PO PRN (05:50)
[2021-10-23] MEDS: diazePAM 5 MG TABLET PO SCH ×3 (05:50→22:21)
[2021-10-23] MEDS: PRENATAL VITAMINS W/ FOLIC ACID TABLET (FP) PO SCH (10:27)
[2021-10-23] MEDS: THIAMINE HCL 100 MG TABLET (FP) PO SCH (22:22)
[2021-10-24] MEDS: diazePAM 5 MG TABLET PO SCH ×2 (06:47→18:13)
[2021-10-24] MEDS: IBUPROFEN 400 MG TABLET (FP) PO PRN (07:16)
[2021-10-24] MEDS: PRENATAL VITAMINS W/ FOLIC ACID TABLET (FP) PO SCH (10:30)
[2021-10-24 16:08] LABS: SARS-CoV-2 NAA Not Detected (Not Detected)
[2021-10-24] MEDS: THIAMINE HCL 100 MG TABLET (FP) PO SCH (22:32)
[2021-10-24] MEDS: MELATONIN 5 MG TABLETS PO PRN (22:32)
[2021-10-25] MEDS ORDERED: diazePAM 5 MG TABLET PO ONE (06:00)
[2021-10-25 07:23] VITALS: BP 111/73; PULSE 81; TEMP 98
== END 2021-10-25 08:32 | disposition home or self-care (01) | DRG 774 ==
LOC: YASAS 11:55 → Y3N 13:40
PROVIDERS: ADMIT Allergy & Immunology; ATTEND Allergy & Immunology
PROC: HZ2ZZZZ Detoxification Services for Substance Abuse Treatment (ICD-10-PCS; principal; 2021-10-21)
DX: F10.230 Alcohol dependence with withdrawal, uncomplicated (principal); F14.20 Cocaine dependence, uncomplicated; I10 Essential (primary) hypertension; K21.9 Gastro-esophageal reflux disease without esophagitis
CPT/HCPCS: 36415; 70150-TC-FY; 80053; 85027; 86780; 87811; C9803-CS; U0003; U0005

== ENCOUNTER 2021-11-22 18:36 | Inpatient (IN) | payer OTHER ==
[2021-11-22 20:11] VITALS: BMI 32.7
[2021-11-22] MEDS ORDERED: BISMUTH SUBSALICYLATE 524 MG/30 ML PO PRN (20:33)
[2021-11-22] MEDS ORDERED: MAGNESIUM HYDROX 2400MG/30ML ORAL SUSPENSION 30 ML CUP PO PRN (20:33)
[2021-11-22] MEDS ORDERED: LOPERAMIDE HCL 2 MG CAPSULE PO PRN (20:33)
[2021-11-22] MEDS ORDERED: BENZOCAINE/MENTHOL (CHLORASEPTIC ) LOZENGE MM PRN (20:33)
[2021-11-22] MEDS ORDERED: hydrOXYzine PAMOATE 25 MG CAPSULE (FP) PO PRN (20:33)
[2021-11-22] MEDS ORDERED: ONDANSETRON *ODT* 4 MG TABLET SL PRN (20:33)
[2021-11-22] MEDS ORDERED: MELATONIN 5 MG TABLETS PO PRN (20:33)
[2021-11-22] MEDS ORDERED: ACETAMINOPHEN 325 MG TABLET (FP) PO PRN ×2 (20:33)
[2021-11-22] MEDS ORDERED: METHOCARBAMOL 500 MG TABLET PO PRN (20:33)
[2021-11-22] MEDS ORDERED: MAG HYDROX/AL HYDROX/SIMETH 30 ML UNIT-DOSE CUP PO PRN (20:33)
[2021-11-22] MEDS ORDERED: DICYCLOMINE HCL 10 MG CAPSULE PO PRN (20:33)
[2021-11-22] MEDS ORDERED: MAGNESIUM CITRATE 300 ML BOTTLE PO PRN (20:33)
[2021-11-22] MEDS ORDERED: IBUPROFEN 400 MG TABLET (FP) PO PRN (20:33)
[2021-11-22] MEDS ORDERED: diazePAM 5 MG TABLET PO PRN (20:35)
[2021-11-22] MEDS ORDERED: diphenhydrAMINE HCL 25 MG CAPSULE (FP) PO ONE (20:35)
[2021-11-22] MEDS ORDERED: THIAMINE HCL 100 MG TABLET (FP) PO SCH (22:00)
[2021-11-23] MEDS ORDERED: METHOCARBAMOL 500 MG TABLET ONE (06:09)
[2021-11-23] MEDS ORDERED: diazePAM 5 MG TABLET ONE (06:09)
[2021-11-23] MEDS ORDERED: hydrOXYzine PAMOATE 25 MG CAPSULE (FP) PO ONE (06:09)
[2021-11-23] MEDS ORDERED: diazePAM 5 MG TABLET PO PRN (08:38)
[2021-11-23] MEDS ORDERED: PRENATAL VITAMINS W/ FOLIC ACID TABLET (FP) PO SCH (10:00)
[2021-11-23] MEDS ORDERED: HYDROCHLOROTHIAZIDE 12.5 MG CAPSULE (FP) PO SCH (10:00)
[2021-11-23 10:14] VITALS: BP 142/63; PULSE 92; TEMP 96.9
[2021-11-23] MEDS ORDERED: diazePAM 5 MG TABLET PO SCH (11:00)
[2021-11-23 17:11] LABS: HEMATOCRIT 37.7 % (35.4-49); HEMOGLOBIN 12.3 GM/dL (11.7-16.9); MCH 30.4 pg (25.7-33.7); MCHC 32.6 g/dl (32.0-35.9); MEAN CELL VOLUME 93.4 fl (80-96); MEAN PLT VOLUME 8.9 fl (7.5-11.1); PLATELET COUNT 225 10^3/uL (134-434); RBC 4.03 M/mm3 (4.00-5.60); WHITE BLOOD COUNT 4.3 K/mm3 (4.0-10.0)
[2021-11-23 17:25] LABS: ALBUMIN 3.5 g/dl (3.4-5.0); CALCIUM 8.9 mg/dL (8.5-10.1)
[2021-11-23 17:26] LABS: BLOOD UREA NITROGEN 16.1 mg/dL (7-18)
[2021-11-23 17:28] LABS: CREATININE 1.1 mg/dL (0.55-1.3)
[2021-11-23 17:29] LABS: TOT PROT 6.8 g/dl (6.4-8.2)
[2021-11-23 17:30] LABS: BILIRUBIN,TOTAL 0.5 mg/dL (0.2-1)
[2021-11-25] MEDS ORDERED: diazePAM 5 MG TABLET PO SCH (06:00)
[2021-11-26] MEDS ORDERED: diazePAM 5 MG TABLET PO SCH (06:00)
[2021-11-27] MEDS ORDERED: diazePAM 5 MG TABLET PO ONE (06:00)
== END 2021-11-23 10:50 | disposition home or self-care (01) | DRG 774 ==
LOC: YASAS 18:36 → Y6N 11-23 09:38
PROVIDERS: ADMIT Allergy & Immunology; ATTEND Allergy & Immunology
PROC: HZ2ZZZZ Detoxification Services for Substance Abuse Treatment (ICD-10-PCS; principal; 2021-11-23)
DX: F10.230 Alcohol dependence with withdrawal, uncomplicated (principal); F14.20 Cocaine dependence, uncomplicated; F31.9 Bipolar disorder, unspecified; F19.280 Other psychoactive substance dependence with psychoactive substance-induced anxiety disorder; F19.24 Other psychoactive substance dependence with psychoactive substance-induced mood disorder; I10 Essential (primary) hypertension; K21.9 Gastro-esophageal reflux disease without esophagitis; M54.50 Low back pain, unspecified; G89.29 Other chronic pain; Z87.891 Personal history of nicotine dependence
CPT/HCPCS: 36415; 80053; 85027; 86780; 87811; C9803-CS; U0003; U0005

== ENCOUNTER 2022-01-16 15:07 | Inpatient (IN) | payer OTHER ==
[2022-01-16 15:58] VITALS: BMI 33.1
[2022-01-16] MEDS ORDERED: DICYCLOMINE HCL 10 MG CAPSULE PO PRN (16:34)
[2022-01-16] MEDS ORDERED: IBUPROFEN 400 MG TABLET (FP) PO PRN (16:34)
[2022-01-16] MEDS ORDERED: BISMUTH SUBSALICYLATE 524 MG/30 ML PO PRN (16:34)
[2022-01-16] MEDS ORDERED: ACETAMINOPHEN 325 MG TABLET (FP) PO PRN ×2 (16:34)
[2022-01-16] MEDS ORDERED: BENZOCAINE/MENTHOL (CHLORASEPTIC ) LOZENGE MM PRN (16:34)
[2022-01-16] MEDS ORDERED: ONDANSETRON *ODT* 4 MG TABLET SL PRN (16:34)
[2022-01-16] MEDS ORDERED: MAG HYDROX/AL HYDROX/SIMETH 30 ML UNIT-DOSE CUP PO PRN (16:34)
[2022-01-16] MEDS ORDERED: LOPERAMIDE HCL 2 MG CAPSULE PO PRN (16:34)
[2022-01-16] MEDS ORDERED: LORazepam 1 MG TABLET PO PRN (16:34)
[2022-01-16] MEDS ORDERED: MAGNESIUM CITRATE 300 ML BOTTLE PO PRN (16:34)
[2022-01-16] MEDS ORDERED: IBUPROFEN 600 MG TABLET (FP) PO PRN (16:34)
[2022-01-16] MEDS ORDERED: METHOCARBAMOL 500 MG TABLET PO PRN (16:34)
[2022-01-16] MEDS ORDERED: MAGNESIUM HYDROX 2400MG/30ML ORAL SUSPENSION 30 ML CUP PO PRN (16:34)
[2022-01-16] MEDS: LORazepam 2 MG TABLET PO SCH ×2 (18:37→23:55)
[2022-01-16] MEDS: hydrOXYzine PAMOATE 25 MG CAPSULE (FP) PO SCH ×2 (18:40→23:55)
[2022-01-16] MEDS: THIAMINE HCL 100 MG TABLET (FP) PO SCH (23:55)
[2022-01-16] MEDS: MELATONIN 5 MG TABLETS PO SCH (23:55)
[2022-01-17] MEDS: hydrOXYzine PAMOATE 25 MG CAPSULE (FP) PO SCH ×5 (05:16→21:29)
[2022-01-17] MEDS: LORazepam 2 MG TABLET PO SCH ×4 (05:16→22:00)
[2022-01-17] MEDS ORDERED: PRENATAL VITAMINS W/ FOLIC ACID TABLET (FP) PO SCH (10:00)
[2022-01-17 13:15] VITALS: TEMP 97.8
[2022-01-17] MEDS: THIAMINE HCL 100 MG TABLET (FP) PO SCH (21:28)
[2022-01-17] MEDS: MELATONIN 5 MG TABLETS PO SCH (21:29)
[2022-01-17 22:38] VITALS: BP 131/79; PULSE 71
[2022-01-18] MEDS ORDERED: LORazepam 1 MG TABLET PO SCH (05:00)
[2022-01-19] MEDS ORDERED: LORazepam 0.5 MG TABLET PO PRN
[2022-01-19] MEDS ORDERED: LORazepam 0.5 MG TABLET PO SCH (05:00)
[2022-01-20] MEDS ORDERED: LORazepam 0.5 MG TABLET PO ONE (05:00)
== END 2022-01-17 11:45 | disposition left against medical advice (07) | DRG 770 ==
LOC: YASAS 15:07 → Y6N 17:37
PROVIDERS: ADMIT Allergy & Immunology; ATTEND Surgery
PROC: HZ2ZZZZ Detoxification Services for Substance Abuse Treatment (ICD-10-PCS; principal; 2022-01-16)
DX: F10.230 Alcohol dependence with withdrawal, uncomplicated (principal); F12.20 Cannabis dependence, uncomplicated; F31.9 Bipolar disorder, unspecified; F19.24 Other psychoactive substance dependence with psychoactive substance-induced mood disorder; F19.282 Other psychoactive substance dependence with psychoactive substance-induced sleep disorder; I10 Essential (primary) hypertension; K21.9 Gastro-esophageal reflux disease without esophagitis; M54.59 Other low back pain; G89.29 Other chronic pain; Z87.891 Personal history of nicotine dependence; Z56.0 Unemployment, unspecified; Z59.00 Homelessness unspecified
CPT/HCPCS: 87811; C9803-CS; U0003; U0005

== ENCOUNTER 2022-05-06 18:41 | Inpatient (IN) | payer OTHER ==
[2022-05-06 20:56] VITALS: BMI 34.4
[2022-05-06] MEDS ORDERED: LOPERAMIDE HCL 2 MG CAPSULE PO PRN (22:39)
[2022-05-06] MEDS ORDERED: ACETAMINOPHEN 325 MG TABLET (FP) PO PRN (22:39)
[2022-05-06] MEDS ORDERED: hydrOXYzine PAMOATE 25 MG CAPSULE (FP) PO PRN (22:39)
[2022-05-06] MEDS ORDERED: MELATONIN 5 MG TABLETS PO PRN (22:39)
[2022-05-06] MEDS ORDERED: MAGNESIUM HYDROX 2400MG/30ML ORAL SUSPENSION 30 ML CUP PO PRN (22:39)
[2022-05-06] MEDS ORDERED: MAG HYDROX/AL HYDROX/SIMETH 30 ML UNIT-DOSE CUP PO PRN (22:39)
[2022-05-06] MEDS ORDERED: guaiFENesin 200 MG/10 ML 10 ML UNIT-DOSE CUPS PO PRN (22:39)
[2022-05-06] MEDS ORDERED: P-EPHED 60MG/TRIPROLIDI 2.5MG TABLET PO PRN (22:39)
[2022-05-06] MEDS ORDERED: MAGNESIUM CITRATE 300 ML BOTTLE PO PRN (22:39)
[2022-05-06] MEDS ORDERED: LOPERAMIDE HCL 2 MG CAPSULE ONE (22:47)
[2022-05-07] MEDS ORDERED: HYDROCHLOROTHIAZIDE 12.5 MG CAPSULE (FP) PO SCH (10:00)
[2022-05-07] MEDS ORDERED: BACLOFEN 10 MG TABLET (FP) PO PRN (10:13)
[2022-05-07] MEDS ORDERED: ONDANSETRON *ODT* 4 MG TABLET SL PRN (10:13)
[2022-05-07] MEDS: HYDROCHLOROTHIAZIDE 12.5 MG CAPSULE (FP) PO SCH (10:14)
[2022-05-07] MEDS: PRENATAL VITAMINS W/ FOLIC ACID TABLET (FP) PO SCH (10:14)
[2022-05-07 15:25] LABS: HEMATOCRIT 35.5 % (35.4-49); HEMOGLOBIN 12.2 GM/dL (11.7-16.9); MCH 32.5 pg (25.7-33.7); MCHC 34.4 g/dl (32.0-35.9); MEAN CELL VOLUME 94.4 fl (80-96); PLATELET COUNT 240 10^3/uL (134-434); RBC 3.76 M/mm3 (4.00-5.60); RDW 14.3 % (11.9-15.9); WHITE BLOOD COUNT 4.5 K/mm3 (4.0-10.0)
[2022-05-07 17:56] LABS: ALBUMIN 3.6 g/dl (3.4-5.0); BLOOD UREA NITROGEN 21.1 mg/dL (7-18)
[2022-05-07 17:59] LABS: CREATININE 1.3 mg/dL (0.55-1.3)
[2022-05-07 18:01] LABS: BILIRUBIN,TOTAL 0.7 mg/dL (0.2-1); TOT PROT 7.1 g/dl (6.4-8.2)
[2022-05-07] MEDS: THIAMINE HCL 100 MG TABLET (FP) PO SCH (21:18)
[2022-05-07] MEDS: diphenhydrAMINE HCL 25 MG CAPSULE (FP) PO PRN (21:18)
[2022-05-08] MEDS: PRENATAL VITAMINS W/ FOLIC ACID TABLET (FP) PO SCH (10:04)
[2022-05-08] MEDS: HYDROCHLOROTHIAZIDE 12.5 MG CAPSULE (FP) PO SCH (10:04)
[2022-05-08] MEDS: IBUPROFEN 400 MG TABLET (FP) PO PRN (20:20)
[2022-05-08] MEDS: THIAMINE HCL 100 MG TABLET (FP) PO SCH (22:15)
[2022-05-09] MEDS: HYDROCHLOROTHIAZIDE 12.5 MG CAPSULE (FP) PO SCH (10:33)
[2022-05-09] MEDS: PRENATAL VITAMINS W/ FOLIC ACID TABLET (FP) PO SCH (10:34)
[2022-05-09] MEDS: diphenhydrAMINE HCL 25 MG CAPSULE (FP) PO PRN (21:09)
[2022-05-09] MEDS: THIAMINE HCL 100 MG TABLET (FP) PO SCH (21:10)
[2022-05-09 22:17] VITALS: RESP 18
[2022-05-10] MEDS: PRENATAL VITAMINS W/ FOLIC ACID TABLET (FP) PO SCH (10:19)
[2022-05-10] MEDS: HYDROCHLOROTHIAZIDE 12.5 MG CAPSULE (FP) PO SCH (10:20)
[2022-05-10] MEDS: IBUPROFEN 400 MG TABLET (FP) PO PRN (21:13)
[2022-05-10] MEDS: THIAMINE HCL 100 MG TABLET (FP) PO SCH (21:14)
[2022-05-11] MEDS: PRENATAL VITAMINS W/ FOLIC ACID TABLET (FP) PO SCH (09:51)
[2022-05-11] MEDS: HYDROCHLOROTHIAZIDE 12.5 MG CAPSULE (FP) PO SCH (09:52)
[2022-05-11] MEDS: diphenhydrAMINE HCL 25 MG CAPSULE (FP) PO PRN (21:05)
[2022-05-11] MEDS: THIAMINE HCL 100 MG TABLET (FP) PO SCH (21:06)
[2022-05-12] MEDS: HYDROCHLOROTHIAZIDE 12.5 MG CAPSULE (FP) PO SCH (09:45)
[2022-05-12] MEDS: PRENATAL VITAMINS W/ FOLIC ACID TABLET (FP) PO SCH (09:45)
[2022-05-12 12:25] LABS: PH,URINE 5.5 (5.0-8.0); URINE APPEARANCE CLEAR; URINE BILIRUBIN NEGATIVE (NEGATIVE); URINE COLOR YELLOW; URINE GLUCOSE (UA) NEGATIVE (NEGATIVE); URINE KETONE NEGATIVE (NEGATIVE); URINE LEUK ESTERASE NEGATIVE (NEGATIVE); URINE NITRITE NEGATIVE (NEGATIVE); URINE PROTEIN NEGATIVE (NEGATIVE); URINE UROBILINOGEN 0.2 mg/dL (0.2-1.0)
[2022-05-12] MEDS: IBUPROFEN 400 MG TABLET (FP) PO PRN (21:10)
[2022-05-12] MEDS: THIAMINE HCL 100 MG TABLET (FP) PO SCH (21:12)
[2022-05-13] MEDS: PRENATAL VITAMINS W/ FOLIC ACID TABLET (FP) PO SCH (09:53)
[2022-05-13] MEDS: HYDROCHLOROTHIAZIDE 12.5 MG CAPSULE (FP) PO SCH (09:53)
[2022-05-13] MEDS ORDERED: FLU VACC QS2022-23(6MOS UP)/PF 60 MCG/0.5 ML SYRINGE IM ONE (12:00)
[2022-05-13] MEDS: IBUPROFEN 400 MG TABLET (FP) PO PRN (19:31)
[2022-05-13] MEDS: diphenhydrAMINE HCL 25 MG CAPSULE (FP) PO PRN (21:12)
[2022-05-13] MEDS: THIAMINE HCL 100 MG TABLET (FP) PO SCH (21:12)
[2022-05-14 07:56] VITALS: TEMP 98
[2022-05-14 09:15] VITALS: BP 112/62; PULSE 82
[2022-05-14] MEDS: HYDROCHLOROTHIAZIDE 12.5 MG CAPSULE (FP) PO SCH (09:46)
[2022-05-14] MEDS: PRENATAL VITAMINS W/ FOLIC ACID TABLET (FP) PO SCH (09:46)
== END 2022-05-14 12:17 | disposition home or self-care (01) | DRG 772 ==
LOC: YASAS 18:41 → Y5N 05-07 00:02
PROVIDERS: ADMIT Allergy & Immunology; ATTEND Psychiatry & Neurology Pain Medicine
PROC: HZ42ZZZ Group Counseling for Substance Abuse Treatment, Cognitive-Behavioral (ICD-10-PCS; principal; 2022-05-07)
DX: F14.20 Cocaine dependence, uncomplicated (principal); F10.20 Alcohol dependence, uncomplicated; F19.282 Other psychoactive substance dependence with psychoactive substance-induced sleep disorder; F19.24 Other psychoactive substance dependence with psychoactive substance-induced mood disorder; F31.9 Bipolar disorder, unspecified; I10 Essential (primary) hypertension; K21.9 Gastro-esophageal reflux disease without esophagitis; G89.29 Other chronic pain
CPT/HCPCS: 36415; 80053; 81003; 85027; 86780; C9803-CS; U0003; U0005

== ENCOUNTER 2022-07-24 16:09 | Inpatient (IN) | payer OTHER ==
[2022-07-24 17:46] VITALS: BMI 34.4
[2022-07-24] MEDS ORDERED: BENZOCAINE/MENTHOL (CHLORASEPTIC ) LOZENGE MM PRN (19:06)
[2022-07-24] MEDS ORDERED: LOPERAMIDE HCL 2 MG CAPSULE PO PRN (19:06)
[2022-07-24] MEDS ORDERED: MAGNESIUM HYDROX 2400MG/30ML ORAL SUSPENSION 30 ML CUP PO PRN (19:06)
[2022-07-24] MEDS ORDERED: IBUPROFEN 600 MG TABLET (FP) PO PRN (19:06)
[2022-07-24] MEDS ORDERED: MELATONIN 5 MG TABLETS PO PRN (19:06)
[2022-07-24] MEDS ORDERED: guaiFENesin 200 MG/10 ML 10 ML UNIT-DOSE CUPS PO PRN (19:06)
[2022-07-24] MEDS ORDERED: P-EPHED 60MG/TRIPROLIDI 2.5MG TABLET PO PRN (19:06)
[2022-07-24] MEDS ORDERED: POLYETHYLENE GLYCOL (HEALTHYLAX) 3350 17 GM PACKET PO PRN (19:06)
[2022-07-24] MEDS ORDERED: IBUPROFEN 400 MG TABLET (FP) PO PRN (19:06)
[2022-07-24] MEDS ORDERED: ONDANSETRON *ODT* 4 MG TABLET SL PRN (19:06)
[2022-07-24] MEDS ORDERED: METHOCARBAMOL 500 MG TABLET PO PRN (19:06)
[2022-07-24] MEDS ORDERED: ACETAMINOPHEN 325 MG TABLET (FP) PO PRN ×2 (19:06)
[2022-07-24] MEDS ORDERED: diazePAM 5 MG TABLET PO PRN (19:07)
[2022-07-24] MEDS: THIAMINE HCL 100 MG TABLET (FP) PO SCH (22:42)
[2022-07-24] MEDS: diazePAM 5 MG TABLET PO SCH (22:42)
[2022-07-25] MEDS: diazePAM 5 MG TABLET PO SCH (05:30)
[2022-07-25] MEDS: DICYCLOMINE HCL 10 MG CAPSULE PO PRN ×2 (06:25→17:25)
[2022-07-25] MEDS: MAG HYDROX/AL HYDROX/SIMETH 30 ML UNIT-DOSE CUP PO PRN (06:40)
[2022-07-25] MEDS: BISMUTH SUBSALICYLATE 524 MG/30 ML PO PRN (08:45)
[2022-07-25] MEDS: PRENATAL VITAMINS W/ FOLIC ACID TABLET (FP) PO SCH (10:50)
[2022-07-25] MEDS: PANTOPRAZOLE 20 MG TABLET PO SCH ×2 (17:25→23:01)
[2022-07-25] MEDS: THIAMINE HCL 100 MG TABLET (FP) PO SCH (23:01)
[2022-07-25] MEDS: diphenhydrAMINE HCL 50 MG CAPSULE PO PRN (23:03)
[2022-07-26] MEDS ORDERED: diazePAM 5 MG TABLET PO SCH (06:00)
[2022-07-26] MEDS: MAG HYDROX/AL HYDROX/SIMETH 30 ML UNIT-DOSE CUP PO PRN (06:54)
[2022-07-26] MEDS: PRENATAL VITAMINS W/ FOLIC ACID TABLET (FP) PO SCH (10:49)
[2022-07-26] MEDS: PANTOPRAZOLE 20 MG TABLET PO SCH ×2 (10:49→22:03)
[2022-07-26 17:14] VITALS: RESP 18
[2022-07-26] MEDS: BISMUTH SUBSALICYLATE 524 MG/30 ML PO PRN (17:22)
[2022-07-26] MEDS: diphenhydrAMINE HCL 50 MG CAPSULE PO PRN (22:03)
[2022-07-26] MEDS: THIAMINE HCL 100 MG TABLET (FP) PO SCH (22:03)
[2022-07-26 22:04] VITALS: BP 122/87; PULSE 105; TEMP 98.5
[2022-07-27] MEDS ORDERED: diazePAM 5 MG TABLET PO ONE (06:00)
== END 2022-07-27 09:34 | disposition home or self-care (01) | DRG 774 ==
LOC: YASAS 16:09 → Y6N 18:43
PROVIDERS: ADMIT Allergy & Immunology; ATTEND Surgery
PROC: HZ2ZZZZ Detoxification Services for Substance Abuse Treatment (ICD-10-PCS; principal; 2022-07-24)
DX: F10.230 Alcohol dependence with withdrawal, uncomplicated (principal); F14.20 Cocaine dependence, uncomplicated; F32.A Depression, unspecified; I10 Essential (primary) hypertension; K21.9 Gastro-esophageal reflux disease without esophagitis; M54.50 Low back pain, unspecified; G89.29 Other chronic pain
CPT/HCPCS: 0241U-QW; C9803-CS; U0003; U0005

== ENCOUNTER 2022-08-23 12:54 | Inpatient (IN) | payer OTHER ==
[2022-08-23 13:41] VITALS: BMI 34.1
[2022-08-23] MEDS ORDERED: ACETAMINOPHEN 325 MG TABLET (FP) PO PRN (14:46)
[2022-08-23] MEDS ORDERED: LOPERAMIDE HCL 2 MG CAPSULE PO PRN (14:46)
[2022-08-23] MEDS ORDERED: BENZOCAINE/MENTHOL (CHLORASEPTIC ) LOZENGE MM PRN (14:46)
[2022-08-23] MEDS ORDERED: P-EPHED 60MG/TRIPROLIDI 2.5MG TABLET PO PRN (14:46)
[2022-08-23] MEDS ORDERED: hydrOXYzine PAMOATE 25 MG CAPSULE (FP) PO PRN (14:46)
[2022-08-23] MEDS ORDERED: POLYETHYLENE GLYCOL (HEALTHYLAX) 3350 17 GM PACKET PO PRN (14:46)
[2022-08-23] MEDS ORDERED: MAGNESIUM HYDROX 2400MG/30ML ORAL SUSPENSION 30 ML CUP PO PRN (14:46)
[2022-08-23] MEDS ORDERED: HYDROCHLOROTHIAZIDE 12.5 MG CAPSULE (FP) ONE (15:47)
[2022-08-23] MEDS: HYDROCHLOROTHIAZIDE 12.5 MG CAPSULE (FP) PO SCH (15:50)
[2022-08-23] MEDS: ASPIRIN COATED 81 MG TABLET.EC PO SCH (15:50)
[2022-08-23] MEDS ORDERED: TUBERCULIN PPD 5 TU/0.1ML VIAL ID ONE (20:56)
[2022-08-23] MEDS: THIAMINE HCL 100 MG TABLET (FP) PO SCH (22:04)
[2022-08-23] MEDS: MELATONIN 5 MG TABLETS PO SCH (22:04)
[2022-08-24] MEDS: IBUPROFEN 400 MG TABLET (FP) PO PRN ×3 (00:18→19:45)
[2022-08-24] MEDS: PRENATAL VITAMINS W/ FOLIC ACID TABLET (FP) PO SCH (10:29)
[2022-08-24] MEDS: HYDROCHLOROTHIAZIDE 12.5 MG CAPSULE (FP) PO SCH (10:29)
[2022-08-24] MEDS: ASPIRIN COATED 81 MG TABLET.EC PO SCH (10:29)
[2022-08-24] MEDS: MELATONIN 5 MG TABLETS PO SCH (21:24)
[2022-08-24] MEDS: THIAMINE HCL 100 MG TABLET (FP) PO SCH (21:24)
[2022-08-25] MEDS: IBUPROFEN 400 MG TABLET (FP) PO PRN ×2 (06:41→21:05)
[2022-08-25] MEDS: ASPIRIN COATED 81 MG TABLET.EC PO SCH (09:16)
[2022-08-25] MEDS: HYDROCHLOROTHIAZIDE 12.5 MG CAPSULE (FP) PO SCH (09:16)
[2022-08-25] MEDS: PRENATAL VITAMINS W/ FOLIC ACID TABLET (FP) PO SCH (09:16)
[2022-08-25] MEDS: MAG HYDROX/AL HYDROX/SIMETH 30 ML UNIT-DOSE CUP PO PRN (15:37)
[2022-08-25] MEDS: THIAMINE HCL 100 MG TABLET (FP) PO SCH (21:05)
[2022-08-25] MEDS: MELATONIN 5 MG TABLETS PO SCH (21:06)
[2022-08-26] MEDS: MAG HYDROX/AL HYDROX/SIMETH 30 ML UNIT-DOSE CUP PO PRN (01:44)
[2022-08-26] MEDS ORDERED: MODERNA COVID-19 VACC,MRNA/PF 100 MCG/0.5 ML IM ONE (08:28)
[2022-08-26] MEDS: HYDROCHLOROTHIAZIDE 12.5 MG CAPSULE (FP) PO SCH (09:26)
[2022-08-26] MEDS: ASPIRIN COATED 81 MG TABLET.EC PO SCH (09:26)
[2022-08-26] MEDS: PRENATAL VITAMINS W/ FOLIC ACID TABLET (FP) PO SCH (09:27)
[2022-08-26] MEDS ORDERED: PANTOPRAZOLE 20 MG TABLET PO PRN (15:41)
[2022-08-26 17:56] LABS: URINE APPEARANCE CLEAR; URINE BILIRUBIN NEGATIVE (NEGATIVE); URINE COLOR YELLOW; URINE GLUCOSE (UA) NEGATIVE (NEGATIVE); URINE KETONE NEGATIVE (NEGATIVE); URINE LEUK ESTERASE NEGATIVE (NEGATIVE); URINE NITRITE NEGATIVE (NEGATIVE); URINE PROTEIN NEGATIVE (NEGATIVE); URINE UROBILINOGEN 0.2 mg/dL (0.2-1.0)
[2022-08-26] MEDS ORDERED: diphenhydrAMINE HCL 25 MG CAPSULE (FP) PO ONE (21:00)
[2022-08-26] MEDS: THIAMINE HCL 100 MG TABLET (FP) PO SCH (21:35)
[2022-08-26] MEDS: MELATONIN 5 MG TABLETS PO SCH (21:36)
[2022-08-27] MEDS: IBUPROFEN 400 MG TABLET (FP) PO PRN (06:55)
[2022-08-27] MEDS: ASPIRIN COATED 81 MG TABLET.EC PO SCH (10:00)
[2022-08-27] MEDS: HYDROCHLOROTHIAZIDE 12.5 MG CAPSULE (FP) PO SCH (10:00)
[2022-08-27] MEDS: PRENATAL VITAMINS W/ FOLIC ACID TABLET (FP) PO SCH (10:00)
[2022-08-27 10:47] LABS: EOS % 3.9 % (0-4.5); HEMATOCRIT 36.5 % (35.4-49); HEMOGLOBIN 12.3 GM/dL (11.7-16.9); LYMPH % 37.4 % (8-40); MCH 31.9 pg (25.7-33.7); MCHC 33.8 g/dl (32.0-35.9); MEAN CELL VOLUME 94.5 fl (80-96); MEAN PLT VOLUME 8.6 fl (7.5-11.1); MONO % 8.1 % (3.8-10.2); NEUT % 49.6 % (42.8-82.8); PLATELET COUNT 229 10^3/uL (134-434); RBC 3.86 M/mm3 (4.00-5.60); RDW 15.2 % (11.9-15.9); WHITE BLOOD COUNT 5.3 K/mm3 (4.0-10.0)
[2022-08-27 11:33] LABS: ALBUMIN 3.4 g/dl (3.4-5.0)
[2022-08-27 11:35] LABS: CREATININE 1.2 mg/dL (0.55-1.3)
[2022-08-27 11:36] LABS: BILIRUBIN,TOTAL 0.5 mg/dL (0.2-1); TOT PROT 6.9 g/dl (6.4-8.2)
[2022-08-27 11:48] LABS: SYPHILIS W/ RPR CONF NON-REACTIVE (NONREACTIVE)
[2022-08-27] MEDS: guaiFENesin 200 MG/10 ML 10 ML UNIT-DOSE CUPS PO PRN (16:24)
[2022-08-27] MEDS: THIAMINE HCL 100 MG TABLET (FP) PO SCH (21:36)
[2022-08-27] MEDS: MELATONIN 5 MG TABLETS PO SCH (21:37)
[2022-08-27] MEDS ORDERED: diphenhydrAMINE HCL 25 MG CAPSULE (FP) PO ONE (22:00)
[2022-08-28] MEDS: guaiFENesin 200 MG/10 ML 10 ML UNIT-DOSE CUPS PO PRN (06:58)
[2022-08-28] MEDS: ASPIRIN COATED 81 MG TABLET.EC PO SCH (09:58)
[2022-08-28] MEDS: HYDROCHLOROTHIAZIDE 12.5 MG CAPSULE (FP) PO SCH (09:59)
[2022-08-28] MEDS: PRENATAL VITAMINS W/ FOLIC ACID TABLET (FP) PO SCH (09:59)
[2022-08-28] MEDS: THIAMINE HCL 100 MG TABLET (FP) PO SCH (21:17)
[2022-08-28] MEDS: MELATONIN 5 MG TABLETS PO SCH (21:17)
[2022-08-28] MEDS: IBUPROFEN 400 MG TABLET (FP) PO PRN (21:18)
[2022-08-29 06:46] VITALS: RESP 18; TEMP 97.3
[2022-08-29] MEDS: ASPIRIN COATED 81 MG TABLET.EC PO SCH (09:31)
[2022-08-29] MEDS: HYDROCHLOROTHIAZIDE 12.5 MG CAPSULE (FP) PO SCH (09:32)
[2022-08-29] MEDS: PRENATAL VITAMINS W/ FOLIC ACID TABLET (FP) PO SCH (09:32)
[2022-08-29] MEDS: THIAMINE HCL 100 MG TABLET (FP) PO SCH (21:27)
[2022-08-29] MEDS: MELATONIN 5 MG TABLETS PO SCH (21:27)
[2022-08-29] MEDS ORDERED: diphenhydrAMINE HCL 25 MG CAPSULE (FP) PO ONE (22:00)
[2022-08-30] MEDS: PRENATAL VITAMINS W/ FOLIC ACID TABLET (FP) PO SCH (09:53)
[2022-08-30] MEDS: ASPIRIN COATED 81 MG TABLET.EC PO SCH (09:53)
[2022-08-30] MEDS: HYDROCHLOROTHIAZIDE 12.5 MG CAPSULE (FP) PO SCH (09:54)
[2022-08-30 10:16] VITALS: BP 107/72; PULSE 80
== END 2022-08-30 21:03 | disposition left against medical advice (07) | DRG 770 ==
LOC: YASAS 12:54 → Y3E 19:30
PROVIDERS: ADMIT Allergy & Immunology; ATTEND Psychiatry & Neurology Pain Medicine
PROC: HZ42ZZZ Group Counseling for Substance Abuse Treatment, Cognitive-Behavioral (ICD-10-PCS; principal; 2022-08-23)
DX: F10.20 Alcohol dependence, uncomplicated (principal); F14.20 Cocaine dependence, uncomplicated; F31.9 Bipolar disorder, unspecified; I10 Essential (primary) hypertension; K21.9 Gastro-esophageal reflux disease without esophagitis; M54.50 Low back pain, unspecified; G89.29 Other chronic pain; R07.9 Chest pain, unspecified
CPT/HCPCS: 36415; 80053; 81003; 82140; 85025; 86780; 86803; C9803-CS; U0003; U0005

== ENCOUNTER 2022-10-24 15:23 | Inpatient (IN) | payer OTHER ==
[2022-10-24 16:53] VITALS: BMI 33.9
[2022-10-24] MEDS ORDERED: ONDANSETRON *ODT* 4 MG TABLET SL PRN (19:04)
[2022-10-24] MEDS ORDERED: IBUPROFEN 600 MG TABLET (FP) PO PRN (19:04)
[2022-10-24] MEDS ORDERED: BENZONATATE 200 MG CAPSULE PO PRN (19:04)
[2022-10-24] MEDS ORDERED: BENZOCAINE/MENTHOL (CHLORASEPTIC ) LOZENGE MM PRN (19:04)
[2022-10-24] MEDS ORDERED: P-EPHED 60MG/TRIPROLIDI 2.5MG TABLET PO PRN (19:04)
[2022-10-24] MEDS ORDERED: BISMUTH SUBSALICYLATE 524 MG/30 ML PO PRN (19:04)
[2022-10-24] MEDS ORDERED: hydrOXYzine PAMOATE 25 MG CAPSULE (FP) PO PRN (19:04)
[2022-10-24] MEDS ORDERED: LOPERAMIDE HCL 2 MG CAPSULE PO PRN (19:04)
[2022-10-24] MEDS ORDERED: IBUPROFEN 400 MG TABLET (FP) PO PRN (19:04)
[2022-10-24] MEDS ORDERED: ACETAMINOPHEN 325 MG TABLET (FP) PO PRN (19:04)
[2022-10-24] MEDS ORDERED: guaiFENesin 600 MG TABLET.ER (FP) PO PRN (19:04)
[2022-10-24] MEDS ORDERED: MAGNESIUM HYDROX 2400MG/30ML ORAL SUSPENSION 30 ML CUP PO PRN (19:04)
[2022-10-24] MEDS ORDERED: MAG HYDROX/AL HYDROX/SIMETH 30 ML UNIT-DOSE CUP PO PRN (19:04)
[2022-10-24] MEDS ORDERED: DICYCLOMINE HCL 10 MG CAPSULE PO PRN (19:04)
[2022-10-24] MEDS ORDERED: POLYETHYLENE GLYCOL (HEALTHYLAX) 3350 17 GM PACKET PO PRN (19:04)
[2022-10-24] MEDS ORDERED: MELATONIN 5 MG TABLETS PO PRN (19:04)
[2022-10-24] MEDS ORDERED: LORazepam 1 MG TABLET PO PRN (19:07)
[2022-10-24] MEDS ORDERED: LORazepam 0.5 MG TABLET PO PRN (19:19)
[2022-10-24] MEDS: LORazepam 1 MG TABLET PO SCH (22:51)
[2022-10-24] MEDS: THIAMINE HCL 100 MG TABLET (FP) PO SCH (22:52)
[2022-10-25] MEDS: LORazepam 1 MG TABLET PO SCH ×5 (05:43→21:55)
[2022-10-25] MEDS: HYDROCHLOROTHIAZIDE 12.5 MG CAPSULE (FP) PO SCH (10:44)
[2022-10-25] MEDS: PRENATAL VITAMINS W/ FOLIC ACID TABLET (FP) PO SCH (10:44)
[2022-10-25] MEDS: THIAMINE HCL 100 MG TABLET (FP) PO SCH (21:24)
[2022-10-26] MEDS: LORazepam 0.5 MG TABLET PO SCH ×4 (05:58→23:06)
[2022-10-26] MEDS: HYDROCHLOROTHIAZIDE 12.5 MG CAPSULE (FP) PO SCH (10:35)
[2022-10-26] MEDS: PRENATAL VITAMINS W/ FOLIC ACID TABLET (FP) PO SCH (10:35)
[2022-10-26] MEDS: THIAMINE HCL 100 MG TABLET (FP) PO SCH (23:07)
[2022-10-27] MEDS ORDERED: LORazepam 0.5 MG TABLET PO ONE (05:00)
[2022-10-27] MEDS: PRENATAL VITAMINS W/ FOLIC ACID TABLET (FP) PO SCH (09:21)
[2022-10-27] MEDS: HYDROCHLOROTHIAZIDE 12.5 MG CAPSULE (FP) PO SCH (09:23)
[2022-10-27 09:25] VITALS: BP 130/78; PULSE 91; RESP 18; TEMP 97.5
== END 2022-10-27 09:32 | disposition home or self-care (01) | DRG 774 ==
LOC: YASAS 15:23 → Y6N 19:36
PROVIDERS: ADMIT Allergy & Immunology; ATTEND Surgery
PROC: HZ2ZZZZ Detoxification Services for Substance Abuse Treatment (ICD-10-PCS; principal; 2022-10-24)
DX: F10.230 Alcohol dependence with withdrawal, uncomplicated (principal); F14.20 Cocaine dependence, uncomplicated; F32.A Depression, unspecified; I10 Essential (primary) hypertension; K21.9 Gastro-esophageal reflux disease without esophagitis; M54.50 Low back pain, unspecified; G89.29 Other chronic pain
CPT/HCPCS: C9803-CS; U0003; U0005

== ENCOUNTER 2022-11-14 10:42 | Inpatient (IN) | payer OTHER ==
[2022-11-14 11:11] VITALS: BMI 33.3
[2022-11-14] MEDS ORDERED: DICYCLOMINE HCL 10 MG CAPSULE PO PRN (11:55)
[2022-11-14] MEDS ORDERED: ONDANSETRON *ODT* 4 MG TABLET SL PRN (11:55)
[2022-11-14] MEDS ORDERED: MAGNESIUM HYDROX 2400MG/30ML ORAL SUSPENSION 30 ML CUP PO PRN (11:55)
[2022-11-14] MEDS ORDERED: BENZOCAINE/MENTHOL (CHLORASEPTIC ) LOZENGE MM PRN (11:55)
[2022-11-14] MEDS ORDERED: LORazepam 1 MG TABLET PO PRN (11:55)
[2022-11-14] MEDS ORDERED: POLYETHYLENE GLYCOL (HEALTHYLAX) 3350 17 GM PACKET PO PRN (11:55)
[2022-11-14] MEDS ORDERED: guaiFENesin 600 MG TABLET.ER (FP) PO PRN (11:55)
[2022-11-14] MEDS ORDERED: IBUPROFEN 400 MG TABLET (FP) PO PRN (11:55)
[2022-11-14] MEDS ORDERED: NICOTINE 10 MG CARTRIDGE (INHALER) IH PRN (11:55)
[2022-11-14] MEDS ORDERED: METHOCARBAMOL 500 MG TABLET PO PRN (11:55)
[2022-11-14] MEDS ORDERED: BISMUTH SUBSALICYLATE 524 MG/30 ML PO PRN (11:55)
[2022-11-14] MEDS ORDERED: LOPERAMIDE HCL 2 MG CAPSULE PO PRN (11:55)
[2022-11-14] MEDS ORDERED: BENZONATATE 200 MG CAPSULE PO PRN (11:55)
[2022-11-14] MEDS ORDERED: MAG HYDROX/AL HYDROX/SIMETH 30 ML UNIT-DOSE CUP PO PRN (11:55)
[2022-11-14] MEDS ORDERED: hydrOXYzine PAMOATE 25 MG CAPSULE (FP) PO PRN (11:55)
[2022-11-14] MEDS ORDERED: ACETAMINOPHEN 325 MG TABLET (FP) PO PRN (11:55)
[2022-11-14] MEDS ORDERED: NALOXONE HCL (KLOXXADO) 8 MG SPRAY NS PRN (11:55)
[2022-11-14] MEDS ORDERED: NALOXONE HCL 0.4 MG/ML VIAL IM PRN (11:55)
[2022-11-14] MEDS ORDERED: HYDROCHLOROTHIAZIDE 12.5 MG CAPSULE (FP) ONE (12:49)
[2022-11-14] MEDS ORDERED: PRENATAL VITAMINS W/ FOLIC ACID TABLET (FP) PO ONE (12:50)
[2022-11-14] MEDS: HYDROCHLOROTHIAZIDE 12.5 MG CAPSULE (FP) PO SCH (12:54)
[2022-11-14] MEDS: PRENATAL VITAMINS W/ FOLIC ACID TABLET (FP) PO SCH (12:55)
[2022-11-14] MEDS ORDERED: TUBERCULIN PPD 5 TU/0.1ML VIAL ID ONE (13:29)
[2022-11-14 14:29] LABS: HEMATOCRIT 34.9 % (35.4-49); HEMOGLOBIN 11.9 GM/dL (11.7-16.9); MCH 31.5 pg (25.7-33.7); MCHC 34.1 g/dl (32.0-35.9); MEAN CELL VOLUME 92.4 fl (80-96); MEAN PLT VOLUME 8.6 fl (7.5-11.1); PLATELET COUNT 264 10^3/uL (134-434); RBC 3.78 M/mm3 (4.00-5.60); RDW 14.4 % (11.9-15.9); WHITE BLOOD COUNT 4.6 K/mm3 (4.0-10.0)
[2022-11-14 14:47] LABS: CALCIUM 8.7 mg/dL (8.5-10.1)
[2022-11-14 14:48] LABS: ALBUMIN 3.5 g/dl (3.4-5.0)
[2022-11-14 14:51] LABS: CREATININE 1.2 mg/dL (0.55-1.3)
[2022-11-14 14:54] LABS: BILIRUBIN,TOTAL 0.8 mg/dL (0.2-1)
[2022-11-14] MEDS: LORazepam 2 MG TABLET PO SCH ×3 (17:43→23:21)
[2022-11-14] MEDS: MELATONIN 5 MG TABLETS PO SCH ×2 (23:08→23:20)
[2022-11-14] MEDS: THIAMINE HCL 100 MG TABLET (FP) PO SCH ×2 (23:08→23:20)
[2022-11-15] MEDS: LORazepam 2 MG TABLET PO SCH ×5 (05:53→23:55)
[2022-11-15] MEDS: PRENATAL VITAMINS W/ FOLIC ACID TABLET (FP) PO SCH (10:39)
[2022-11-15] MEDS: IBUPROFEN 600 MG TABLET (FP) PO PRN (10:40)
[2022-11-15] MEDS: HYDROCHLOROTHIAZIDE 12.5 MG CAPSULE (FP) PO SCH (10:42)
[2022-11-15 17:29] VITALS: RESP 18
[2022-11-15] MEDS: THIAMINE HCL 100 MG TABLET (FP) PO SCH (22:49)
[2022-11-15] MEDS: MELATONIN 5 MG TABLETS PO SCH (22:52)
[2022-11-16] MEDS: LORazepam 1 MG TABLET PO SCH ×4 (05:09→22:46)
[2022-11-16] MEDS: PRENATAL VITAMINS W/ FOLIC ACID TABLET (FP) PO SCH (10:06)
[2022-11-16] MEDS: HYDROCHLOROTHIAZIDE 12.5 MG CAPSULE (FP) PO SCH (10:06)
[2022-11-16] MEDS: IBUPROFEN 600 MG TABLET (FP) PO PRN (11:54)
[2022-11-16] MEDS: THIAMINE HCL 100 MG TABLET (FP) PO SCH (22:46)
[2022-11-16] MEDS: MELATONIN 5 MG TABLETS PO SCH (22:46)
[2022-11-17] MEDS ORDERED: LORazepam 0.5 MG TABLET PO PRN
[2022-11-17] MEDS: LORazepam 0.5 MG TABLET PO SCH ×4 (05:30→23:27)
[2022-11-17] MEDS: PRENATAL VITAMINS W/ FOLIC ACID TABLET (FP) PO SCH (10:38)
[2022-11-17] MEDS: HYDROCHLOROTHIAZIDE 12.5 MG CAPSULE (FP) PO SCH (10:38)
[2022-11-17] MEDS: MELATONIN 5 MG TABLETS PO SCH (23:27)
[2022-11-17] MEDS: THIAMINE HCL 100 MG TABLET (FP) PO SCH (23:27)
[2022-11-18] MEDS ORDERED: LORazepam 0.5 MG TABLET PO ONE (05:00)
[2022-11-18 05:50] VITALS: BP 103/56; PULSE 86; TEMP 96.6
== END 2022-11-18 07:18 | disposition home or self-care (01) | DRG 774 ==
LOC: YASAS 10:42 → Y6N 12:47
PROVIDERS: ADMIT Allergy & Immunology; ATTEND Surgery
PROC: HZ2ZZZZ Detoxification Services for Substance Abuse Treatment (ICD-10-PCS; principal; 2022-11-14)
DX: F10.230 Alcohol dependence with withdrawal, uncomplicated (principal); F14.20 Cocaine dependence, uncomplicated; I10 Essential (primary) hypertension; E78.5 Hyperlipidemia, unspecified; K21.9 Gastro-esophageal reflux disease without esophagitis; K76.0 Fatty (change of) liver, not elsewhere classified; M54.50 Low back pain, unspecified; G89.29 Other chronic pain
CPT/HCPCS: 36415; 80053; 83036; 85027; 86780; 87811; C9803-CS; U0003; U0005

== ENCOUNTER 2022-12-30 14:14 | Inpatient (IN) | payer OTHER ==
[2022-12-30 16:40] VITALS: BMI 33.6
[2022-12-30] MEDS ORDERED: IBUPROFEN 400 MG TABLET (FP) PO PRN (19:40)
[2022-12-30] MEDS ORDERED: MAGNESIUM HYDROX 2400MG/30ML ORAL SUSPENSION 30 ML CUP PO PRN (19:40)
[2022-12-30] MEDS ORDERED: IBUPROFEN 600 MG TABLET (FP) PO PRN (19:40)
[2022-12-30] MEDS ORDERED: NALOXONE HCL (KLOXXADO) 8 MG SPRAY NS PRN (19:40)
[2022-12-30] MEDS ORDERED: METHOCARBAMOL 500 MG TABLET PO PRN (19:40)
[2022-12-30] MEDS ORDERED: LOPERAMIDE HCL 2 MG CAPSULE PO PRN (19:40)
[2022-12-30] MEDS ORDERED: POLYETHYLENE GLYCOL (HEALTHYLAX) 3350 17 GM PACKET PO PRN (19:40)
[2022-12-30] MEDS ORDERED: LORazepam 1 MG TABLET PO PRN (19:40)
[2022-12-30] MEDS ORDERED: BENZOCAINE/MENTHOL (CHLORASEPTIC ) LOZENGE MM PRN (19:40)
[2022-12-30] MEDS ORDERED: hydrOXYzine PAMOATE 25 MG CAPSULE (FP) PO PRN (19:40)
[2022-12-30] MEDS ORDERED: ACETAMINOPHEN 325 MG TABLET (FP) PO PRN (19:40)
[2022-12-30] MEDS ORDERED: BENZONATATE 200 MG CAPSULE PO PRN (19:40)
[2022-12-30] MEDS ORDERED: DICYCLOMINE HCL 10 MG CAPSULE PO PRN (19:40)
[2022-12-30] MEDS ORDERED: MAG HYDROX/AL HYDROX/SIMETH 30 ML UNIT-DOSE CUP PO PRN (19:40)
[2022-12-30] MEDS ORDERED: guaiFENesin 600 MG TABLET.ER (FP) PO PRN (19:40)
[2022-12-30] MEDS ORDERED: ONDANSETRON *ODT* 4 MG TABLET SL PRN (19:40)
[2022-12-30] MEDS ORDERED: NALOXONE HCL 0.4 MG/ML VIAL IM PRN (19:40)
[2022-12-30] MEDS ORDERED: BISMUTH SUBSALICYLATE 524 MG/30 ML PO PRN (19:40)
[2022-12-30] MEDS: MELATONIN 5 MG TABLETS PO SCH (22:49)
[2022-12-30] MEDS: THIAMINE HCL 100 MG TABLET (FP) PO SCH (22:49)
[2022-12-30] MEDS: LORazepam 2 MG TABLET PO SCH (22:50)
[2022-12-31] MEDS: LORazepam 2 MG TABLET PO SCH ×4 (06:15→23:05)
[2022-12-31] MEDS: PRENATAL VITAMINS W/ FOLIC ACID TABLET (FP) PO SCH (10:26)
[2022-12-31] MEDS: HYDROCHLOROTHIAZIDE 12.5 MG CAPSULE (FP) PO SCH (10:26)
[2022-12-31 13:26] LABS: HEMATOCRIT 36.8 % (35.4-49); HEMOGLOBIN 12.4 GM/dL (11.7-16.9); MCH 30.8 pg (25.7-33.7); MCHC 33.6 g/dl (32.0-35.9); MEAN CELL VOLUME 91.6 fl (80-96); PLATELET COUNT 219 10^3/uL (134-434); RBC 4.02 M/mm3 (4.00-5.60); RDW 14.4 % (11.9-15.9)
[2022-12-31 14:45] LABS: CALCIUM 9.3 mg/dL (8.5-10.1)
[2022-12-31 14:46] LABS: ALBUMIN 3.7 g/dl (3.4-5.0)
[2022-12-31 14:49] LABS: CREATININE 1.1 mg/dL (0.55-1.3)
[2022-12-31 14:51] LABS: TOT PROT 7.4 g/dl (6.4-8.2)
[2022-12-31 16:05] LABS: BILIRUBIN,TOTAL 0.4 mg/dL (0.2-1)
[2022-12-31 16:08] LABS: POTASSIUM 4.2 mmol/L (3.5-5.1)
[2022-12-31] MEDS: MELATONIN 5 MG TABLETS PO SCH (23:04)
[2022-12-31] MEDS: THIAMINE HCL 100 MG TABLET (FP) PO SCH (23:04)
[2023-01-01] MEDS: LORazepam 1 MG TABLET PO SCH ×4 (05:12→23:26)
[2023-01-01] MEDS: HYDROCHLOROTHIAZIDE 12.5 MG CAPSULE (FP) PO SCH (10:41)
[2023-01-01] MEDS: PRENATAL VITAMINS W/ FOLIC ACID TABLET (FP) PO SCH (10:43)
[2023-01-01] MEDS: MELATONIN 5 MG TABLETS PO SCH (23:26)
[2023-01-01] MEDS: THIAMINE HCL 100 MG TABLET (FP) PO SCH (23:26)
[2023-01-02] MEDS ORDERED: LORazepam 0.5 MG TABLET PO PRN
[2023-01-02] MEDS: LORazepam 0.5 MG TABLET PO SCH ×4 (05:19→23:05)
[2023-01-02] MEDS: HYDROCHLOROTHIAZIDE 12.5 MG CAPSULE (FP) PO SCH (09:31)
[2023-01-02] MEDS: PRENATAL VITAMINS W/ FOLIC ACID TABLET (FP) PO SCH (09:31)
[2023-01-02] MEDS ORDERED: guaiFENesin 200 MG/10 ML 10 ML UNIT-DOSE CUPS PO PRN (12:32)
[2023-01-02] MEDS: MELATONIN 5 MG TABLETS PO SCH (23:04)
[2023-01-02] MEDS: THIAMINE HCL 100 MG TABLET (FP) PO SCH (23:05)
[2023-01-03] MEDS ORDERED: LORazepam 0.5 MG TABLET PO ONE (05:00)
[2023-01-03 06:28] VITALS: BP 114/81; PULSE 60; RESP 16; TEMP 97.3
== END 2023-01-03 07:06 | disposition home or self-care (01) | DRG 774 ==
LOC: YASAS 14:14 → Y3N 21:01
PROVIDERS: ADMIT Surgery; ATTEND Allergy & Immunology
PROC: HZ2ZZZZ Detoxification Services for Substance Abuse Treatment (ICD-10-PCS; principal; 2022-12-30)
DX: F10.230 Alcohol dependence with withdrawal, uncomplicated (principal); F14.20 Cocaine dependence, uncomplicated; I10 Essential (primary) hypertension
CPT/HCPCS: 36415; 80053; 85027; 86780; 87635

== ENCOUNTER 2023-03-21 13:39 | Inpatient (IN) | payer OTHER ==
[2023-03-21 14:25] VITALS: BMI 34.7
[2023-03-21] MEDS ORDERED: ONDANSETRON *ODT* 4 MG TABLET SL PRN (16:33)
[2023-03-21] MEDS ORDERED: IBUPROFEN 400 MG TABLET (FP) PO PRN (16:33)
[2023-03-21] MEDS ORDERED: diazePAM 5 MG TABLET PO PRN (16:33)
[2023-03-21] MEDS ORDERED: P-EPHED 60MG/TRIPROLIDI 2.5MG TABLET PO PRN (16:33)
[2023-03-21] MEDS ORDERED: MAG HYDROX/AL HYDROX/SIMETH 30 ML UNIT-DOSE CUP PO PRN (16:33)
[2023-03-21] MEDS ORDERED: hydrOXYzine PAMOATE 25 MG CAPSULE (FP) PO PRN (16:33)
[2023-03-21] MEDS ORDERED: MAGNESIUM HYDROX 2400MG/30ML ORAL SUSPENSION 30 ML CUP PO PRN (16:33)
[2023-03-21] MEDS ORDERED: ACETAMINOPHEN 325 MG TABLET (FP) PO PRN (16:33)
[2023-03-21] MEDS ORDERED: POLYETHYLENE GLYCOL (HEALTHYLAX) 3350 17 GM PACKET PO PRN (16:33)
[2023-03-21] MEDS ORDERED: guaiFENesin 600 MG TABLET.ER (FP) PO PRN (16:33)
[2023-03-21] MEDS ORDERED: BISMUTH SUBSALICYLATE 524 MG/30 ML PO PRN (16:33)
[2023-03-21] MEDS ORDERED: DICYCLOMINE HCL 10 MG CAPSULE PO PRN (16:33)
[2023-03-21] MEDS ORDERED: BENZONATATE 200 MG CAPSULE PO PRN (16:33)
[2023-03-21] MEDS ORDERED: BENZOCAINE/MENTHOL (CHLORASEPTIC ) LOZENGE MM PRN (16:33)
[2023-03-21] MEDS ORDERED: LOPERAMIDE HCL 2 MG CAPSULE PO PRN (16:33)
[2023-03-21] MEDS ORDERED: IBUPROFEN 600 MG TABLET (FP) PO ONE (16:57)
[2023-03-21] MEDS: IBUPROFEN 600 MG TABLET (FP) PO PRN ×2 (17:01→22:49)
[2023-03-21] MEDS ORDERED: THIAMINE HCL 100 MG TABLET (FP) PO SCH (22:00)
[2023-03-21] MEDS ORDERED: MELATONIN 5 MG TABLETS PO SCH (22:00)
[2023-03-21] MEDS: METHOCARBAMOL 500 MG TABLET PO PRN (22:48)
[2023-03-21] MEDS: diazePAM 5 MG TABLET PO SCH (22:50)
[2023-03-22] MEDS: diazePAM 5 MG TABLET PO SCH ×2 (05:55→10:02)
[2023-03-22] MEDS: IBUPROFEN 600 MG TABLET (FP) PO PRN ×2 (06:02→13:28)
[2023-03-22] MEDS ORDERED: PRENATAL VITAMINS W/ FOLIC ACID TABLET (FP) PO SCH (10:00)
[2023-03-22] MEDS: METHOCARBAMOL 500 MG TABLET PO PRN (13:28)
[2023-03-22 16:59] VITALS: BP 114/64; PULSE 65; RESP 20; TEMP 98.2
[2023-03-23] MEDS ORDERED: diazePAM 5 MG TABLET PO SCH (06:00)
[2023-03-24] MEDS ORDERED: diazePAM 5 MG TABLET PO SCH (06:00)
[2023-03-25] MEDS ORDERED: diazePAM 5 MG TABLET PO ONE (06:00)
== END 2023-03-22 17:19 | disposition left against medical advice (07) | DRG 770 ==
LOC: YASAS 13:39 → Y3N 16:57
PROVIDERS: ADMIT Surgery; ATTEND Surgery
PROC: HZ2ZZZZ Detoxification Services for Substance Abuse Treatment (ICD-10-PCS; principal; 2023-03-21)
DX: F10.230 Alcohol dependence with withdrawal, uncomplicated (principal); F14.10 Cocaine abuse, uncomplicated
CPT/HCPCS: 87635; 87811

== ENCOUNTER 2023-04-22 21:06 | Inpatient (IN) | payer OTHER ==
[2023-04-22 21:49] VITALS: BMI 35.9
[2023-04-22] MEDS ORDERED: IBUPROFEN 400 MG TABLET (FP) PO PRN (22:55)
[2023-04-22] MEDS ORDERED: METHOCARBAMOL 500 MG TABLET PO PRN (22:55)
[2023-04-22] MEDS ORDERED: NALOXONE HCL 0.4 MG/ML VIAL IM PRN (22:55)
[2023-04-22] MEDS ORDERED: LOPERAMIDE HCL 2 MG CAPSULE PO PRN (22:55)
[2023-04-22] MEDS ORDERED: NALOXONE HCL (KLOXXADO) 8 MG SPRAY NS PRN (22:55)
[2023-04-22] MEDS ORDERED: POLYETHYLENE GLYCOL (HEALTHYLAX) 3350 17 GM PACKET PO PRN (22:55)
[2023-04-22] MEDS ORDERED: ACETAMINOPHEN 325 MG TABLET (FP) PO PRN (22:55)
[2023-04-22] MEDS ORDERED: MAGNESIUM HYDROX 2400MG/30ML ORAL SUSPENSION 30 ML CUP PO PRN (22:55)
[2023-04-22] MEDS ORDERED: BENZONATATE 200 MG CAPSULE PO PRN (22:55)
[2023-04-22] MEDS ORDERED: hydrOXYzine PAMOATE 25 MG CAPSULE (FP) PO PRN (22:55)
[2023-04-22] MEDS ORDERED: guaiFENesin 600 MG TABLET.ER (FP) PO PRN (22:55)
[2023-04-22] MEDS ORDERED: BENZOCAINE/MENTHOL (CHLORASEPTIC ) LOZENGE MM PRN (22:55)
[2023-04-22] MEDS ORDERED: ONDANSETRON *ODT* 4 MG TABLET SL PRN (22:55)
[2023-04-22] MEDS ORDERED: BISMUTH SUBSALICYLATE 524 MG/30 ML PO PRN (22:55)
[2023-04-23] MEDS: IBUPROFEN 600 MG TABLET (FP) PO PRN (00:43)
[2023-04-23] MEDS: PRENATAL VITAMINS W/ FOLIC ACID TABLET (FP) PO SCH (09:23)
[2023-04-23] MEDS: diazePAM 5 MG TABLET PO SCH ×3 (10:18→23:04)
[2023-04-23] MEDS: MELATONIN 5 MG TABLETS PO SCH (23:03)
[2023-04-23] MEDS: THIAMINE HCL 100 MG TABLET (FP) PO SCH (23:03)
[2023-04-24] MEDS: diazePAM 5 MG TABLET PO SCH ×3 (05:54→22:48)
[2023-04-24] MEDS: MAG HYDROX/AL HYDROX/SIMETH 30 ML UNIT-DOSE CUP PO PRN ×2 (06:01→13:30)
[2023-04-24] MEDS: PRENATAL VITAMINS W/ FOLIC ACID TABLET (FP) PO SCH (09:13)
[2023-04-24] MEDS: MELATONIN 5 MG TABLETS PO SCH (22:48)
[2023-04-24] MEDS: THIAMINE HCL 100 MG TABLET (FP) PO SCH (22:48)
[2023-04-25] MEDS: IBUPROFEN 600 MG TABLET (FP) PO PRN (03:28)
[2023-04-25] MEDS: diazePAM 5 MG TABLET PO SCH ×2 (07:12→18:48)
[2023-04-25] MEDS: PRENATAL VITAMINS W/ FOLIC ACID TABLET (FP) PO SCH (10:37)
[2023-04-25] MEDS: MAG HYDROX/AL HYDROX/SIMETH 30 ML UNIT-DOSE CUP PO PRN (19:10)
[2023-04-25] MEDS: MELATONIN 5 MG TABLETS PO SCH (23:37)
[2023-04-25] MEDS: THIAMINE HCL 100 MG TABLET (FP) PO SCH (23:37)
[2023-04-26] MEDS ORDERED: diazePAM 5 MG TABLET PO ONE (06:00)
[2023-04-26 09:15] VITALS: BP 136/86; PULSE 82; RESP 16; TEMP 97.8
[2023-04-26] MEDS: PRENATAL VITAMINS W/ FOLIC ACID TABLET (FP) PO SCH (09:32)
== END 2023-04-26 09:35 | disposition home or self-care (01) | DRG 774 ==
LOC: YASAS 21:06 → Y6N 23:18
PROVIDERS: ADMIT Allergy & Immunology; ATTEND Surgery
PROC: HZ2ZZZZ Detoxification Services for Substance Abuse Treatment (ICD-10-PCS; principal; 2023-04-22)
DX: F10.230 Alcohol dependence with withdrawal, uncomplicated (principal); F14.20 Cocaine dependence, uncomplicated; F13.20 Sedative, hypnotic or anxiolytic dependence, uncomplicated; F25.0 Schizoaffective disorder, bipolar type; F41.9 Anxiety disorder, unspecified; F32.A Depression, unspecified; E78.5 Hyperlipidemia, unspecified; I10 Essential (primary) hypertension; K21.9 Gastro-esophageal reflux disease without esophagitis
CPT/HCPCS: 87635

== ENCOUNTER 2023-06-02 10:30 | Inpatient (IN) | payer OTHER ==
[2023-06-02 10:52] VITALS: BMI 36.4
[2023-06-02] MEDS ORDERED: NALOXONE HCL (KLOXXADO) 8 MG SPRAY NS PRN (12:21)
[2023-06-02] MEDS ORDERED: BISMUTH SUBSALICYLATE 524 MG/30 ML PO PRN (12:21)
[2023-06-02] MEDS ORDERED: LORazepam 1 MG TABLET PO PRN (12:21)
[2023-06-02] MEDS ORDERED: BENZOCAINE/MENTHOL (CHLORASEPTIC ) LOZENGE MM PRN (12:21)
[2023-06-02] MEDS ORDERED: IBUPROFEN 400 MG TABLET (FP) PO PRN (12:21)
[2023-06-02] MEDS ORDERED: ACETAMINOPHEN 325 MG TABLET (FP) PO PRN (12:21)
[2023-06-02] MEDS ORDERED: IBUPROFEN 600 MG TABLET (FP) PO PRN (12:21)
[2023-06-02] MEDS ORDERED: DICYCLOMINE HCL 10 MG CAPSULE PO PRN (12:21)
[2023-06-02] MEDS ORDERED: NALOXONE HCL 0.4 MG/ML VIAL IM PRN (12:21)
[2023-06-02] MEDS ORDERED: LOPERAMIDE HCL 2 MG CAPSULE PO PRN (12:21)
[2023-06-02] MEDS ORDERED: MAGNESIUM HYDROX 2400MG/30ML ORAL SUSPENSION 30 ML CUP PO PRN (12:21)
[2023-06-02] MEDS ORDERED: hydrOXYzine PAMOATE 25 MG CAPSULE (FP) PO PRN (12:21)
[2023-06-02] MEDS ORDERED: METHOCARBAMOL 500 MG TABLET PO PRN (12:21)
[2023-06-02] MEDS ORDERED: guaiFENesin 600 MG TABLET.ER (FP) PO PRN (12:21)
[2023-06-02] MEDS ORDERED: BENZONATATE 200 MG CAPSULE PO PRN (12:21)
[2023-06-02] MEDS ORDERED: ONDANSETRON *ODT* 4 MG TABLET SL PRN (12:21)
[2023-06-02] MEDS ORDERED: POLYETHYLENE GLYCOL (HEALTHYLAX) 3350 17 GM PACKET PO PRN (12:21)
[2023-06-02] MEDS ORDERED: PRENATAL VITAMINS W/ FOLIC ACID TABLET (FP) PO ONE (12:57)
[2023-06-02] MEDS: PRENATAL VITAMINS W/ FOLIC ACID TABLET (FP) PO SCH (13:00)
[2023-06-02] MEDS: LORazepam 2 MG TABLET PO SCH ×3 (17:24→22:41)
[2023-06-02] MEDS: MELATONIN 5 MG TABLETS PO SCH ×2 (22:26→22:41)
[2023-06-02] MEDS: THIAMINE HCL 100 MG TABLET (FP) PO SCH (22:26)
[2023-06-02] MEDS: MAG HYDROX/AL HYDROX/SIMETH 30 ML UNIT-DOSE CUP PO PRN (22:27)
[2023-06-03] MEDS: LORazepam 2 MG TABLET PO SCH ×4 (05:40→22:16)
[2023-06-03] MEDS: HYDROCHLOROTHIAZIDE 12.5 MG CAPSULE (FP) PO SCH (10:26)
[2023-06-03] MEDS: PRENATAL VITAMINS W/ FOLIC ACID TABLET (FP) PO SCH (10:26)
[2023-06-03 17:09] LABS: HEMATOCRIT 36.3 % (35.4-49); HEMOGLOBIN 12.3 GM/dL (11.7-16.9); MCH 30.6 pg (25.7-33.7); MCHC 33.9 g/dl (32.0-35.9); MEAN CELL VOLUME 90.3 fl (80-96); MEAN PLT VOLUME 8.8 fl (7.5-11.1); PLATELET COUNT 238 10^3/uL (134-434); RBC 4.02 M/mm3 (4.00-5.60); RDW 14.7 % (11.9-15.9); WHITE BLOOD COUNT 4.6 K/mm3 (4.0-10.0)
[2023-06-03 17:11] LABS: POTASSIUM 4.1 mmol/L (3.5-5.1)
[2023-06-03 17:19] LABS: ALBUMIN 3.6 g/dl (3.4-5.0); BLOOD UREA NITROGEN 16.8 mg/dL (7-18); CALCIUM 8.9 mg/dL (8.5-10.1)
[2023-06-03 17:22] LABS: CREATININE 1.2 mg/dL (0.55-1.3)
[2023-06-03 17:24] LABS: BILIRUBIN,TOTAL 0.4 mg/dL (0.2-1); TOT PROT 7.1 g/dl (6.4-8.2)
[2023-06-03] MEDS: THIAMINE HCL 100 MG TABLET (FP) PO SCH (22:16)
[2023-06-03] MEDS: MELATONIN 5 MG TABLETS PO SCH (22:16)
[2023-06-04] MEDS: LORazepam 1 MG TABLET PO SCH ×4 (05:55→23:39)
[2023-06-04 09:17] VITALS: RESP 18
[2023-06-04] MEDS: PRENATAL VITAMINS W/ FOLIC ACID TABLET (FP) PO SCH (10:57)
[2023-06-04] MEDS: HYDROCHLOROTHIAZIDE 12.5 MG CAPSULE (FP) PO SCH (10:57)
[2023-06-04] MEDS: MAG HYDROX/AL HYDROX/SIMETH 30 ML UNIT-DOSE CUP PO PRN ×2 (12:44→20:38)
[2023-06-04] MEDS: MELATONIN 5 MG TABLETS PO SCH (23:38)
[2023-06-04] MEDS: THIAMINE HCL 100 MG TABLET (FP) PO SCH (23:38)
[2023-06-05] MEDS ORDERED: LORazepam 0.5 MG TABLET PO PRN
[2023-06-05] MEDS: LORazepam 0.5 MG TABLET PO SCH ×2 (05:49→10:29)
[2023-06-05 06:44] VITALS: BP 98/55; PULSE 60; TEMP 97.6
[2023-06-05] MEDS: PRENATAL VITAMINS W/ FOLIC ACID TABLET (FP) PO SCH (10:29)
[2023-06-05] MEDS: HYDROCHLOROTHIAZIDE 12.5 MG CAPSULE (FP) PO SCH (10:29)
[2023-06-06] MEDS ORDERED: LORazepam 0.5 MG TABLET PO ONE (05:00)
== END 2023-06-05 08:20 | disposition home or self-care (01) | DRG 774 ==
LOC: YASAS 10:30 → Y6N 12:40
PROVIDERS: ADMIT Allergy & Immunology; ATTEND Surgery
PROC: HZ2ZZZZ Detoxification Services for Substance Abuse Treatment (ICD-10-PCS; principal; 2023-06-02)
DX: F10.230 Alcohol dependence with withdrawal, uncomplicated (principal); F14.20 Cocaine dependence, uncomplicated; F12.10 Cannabis abuse, uncomplicated; F41.9 Anxiety disorder, unspecified; F32.A Depression, unspecified; I10 Essential (primary) hypertension; K21.9 Gastro-esophageal reflux disease without esophagitis; M54.50 Low back pain, unspecified; G89.29 Other chronic pain; R79.89 Other specified abnormal findings of blood chemistry; Z87.891 Personal history of nicotine dependence
CPT/HCPCS: 36415; 80053; 80307; 82140; 85027; 86780; 87635; 87811

== ENCOUNTER 2023-07-07 15:29 | Inpatient (IN) | payer OTHER ==
[2023-07-07 16:51] VITALS: BMI 34.7
[2023-07-07] MEDS ORDERED: ONDANSETRON *ODT* 4 MG TABLET SL PRN (20:08)
[2023-07-07] MEDS ORDERED: BENZONATATE 200 MG CAPSULE PO PRN (20:08)
[2023-07-07] MEDS ORDERED: P-EPHED 60MG/TRIPROLIDI 2.5MG TABLET PO PRN (20:08)
[2023-07-07] MEDS ORDERED: IBUPROFEN 400 MG TABLET (FP) PO PRN (20:08)
[2023-07-07] MEDS ORDERED: BENZOCAINE/MENTHOL (CHLORASEPTIC ) LOZENGE MM PRN (20:08)
[2023-07-07] MEDS ORDERED: LOPERAMIDE HCL 2 MG CAPSULE PO PRN (20:08)
[2023-07-07] MEDS ORDERED: ACETAMINOPHEN 325 MG TABLET (FP) PO PRN (20:08)
[2023-07-07] MEDS ORDERED: BISMUTH SUBSALICYLATE 524 MG/30 ML PO PRN (20:08)
[2023-07-07] MEDS ORDERED: MAGNESIUM HYDROX 2400MG/30ML ORAL SUSPENSION 30 ML CUP PO PRN (20:08)
[2023-07-07] MEDS ORDERED: POLYETHYLENE GLYCOL (HEALTHYLAX) 3350 17 GM PACKET PO PRN (20:08)
[2023-07-07] MEDS: MAG HYDROX/AL HYDROX/SIMETH 30 ML UNIT-DOSE CUP PO PRN (20:24)
[2023-07-07] MEDS: METHOCARBAMOL 500 MG TABLET PO PRN (22:01)
[2023-07-07] MEDS: MELATONIN 5 MG TABLETS PO SCH (22:01)
[2023-07-07] MEDS: THIAMINE HCL 100 MG TABLET (FP) PO SCH (22:01)
[2023-07-07] MEDS: IBUPROFEN 600 MG TABLET (FP) PO PRN (22:01)
[2023-07-08] MEDS ORDERED: diazePAM 5 MG TABLET PO PRN (09:18)
[2023-07-08] MEDS: DICYCLOMINE HCL 10 MG CAPSULE PO PRN (09:21)
[2023-07-08] MEDS: PRENATAL VITAMINS W/ FOLIC ACID TABLET (FP) PO SCH (09:22)
[2023-07-08] MEDS: diazePAM 5 MG TABLET PO SCH (10:40)
[2023-07-08] MEDS: HYDROCHLOROTHIAZIDE 12.5 MG CAPSULE (FP) PO SCH (10:40)
[2023-07-08] MEDS: guaiFENesin 600 MG TABLET.ER (FP) PO PRN (12:46)
[2023-07-08 13:05] LABS: HEMATOCRIT 37.3 % (35.4-49); HEMOGLOBIN 12.3 GM/dL (11.7-16.9); MCH 29.9 pg (25.7-33.7); MEAN CELL VOLUME 90.4 fl (80-96); MEAN PLT VOLUME 8.6 fl (7.5-11.1); PLATELET COUNT 257 10^3/uL (134-434); RBC 4.13 M/mm3 (4.00-5.60); RDW 14.9 % (11.9-15.9); WHITE BLOOD COUNT 4.2 K/mm3 (4.0-10.0)
[2023-07-08 13:21] LABS: CHLORIDE 107 mmol/L (98-107); POTASSIUM 4.2 mmol/L (3.5-5.1); SODIUM 138 mmol/L (136-145)
[2023-07-08 13:23] LABS: ALBUMIN 3.5 g/dl (3.4-5.0); CALCIUM 9.3 mg/dL (8.5-10.1)
[2023-07-08 13:24] LABS: ANION GAP 5 mmol/L (4-13); BLOOD UREA NITROGEN 19.9 mg/dL (7-18); CO2 26 mmol/L (21-32); GLUCOSE,RANDOM 86 mg/dL (74-106)
[2023-07-08 13:26] LABS: SGPT/ALT 51 U/L (13-61)
[2023-07-08 13:27] LABS: CREATININE 1.1 mg/dL (0.55-1.3); SGOT/AST 51 U/L (15-37)
[2023-07-08 13:28] LABS: BILIRUBIN,TOTAL 0.4 mg/dL (0.2-1); TOT PROT 7.2 g/dl (6.4-8.2)
[2023-07-08 13:29] LABS: ALK PHOS 77 U/L (45-117)
[2023-07-09] MEDS: diazePAM 5 MG TABLET PO SCH (06:04)
[2023-07-10] MEDS: diazePAM 5 MG TABLET PO SCH (05:46)
[2023-07-11] MEDS: diazePAM 5 MG TABLET PO ONE (05:34)
[2023-07-12 13:38] VITALS: RESP 18
[2023-07-14] MEDS: DICYCLOMINE HCL 10 MG CAPSULE PO ONE (10:48)
[2023-07-14] MEDS: FAMOTIDINE 20 MG TABLET PO SCH (16:39)
[2023-07-14] MEDS ORDERED: FAMOTIDINE 20 MG TABLET PO SCH (22:00)
[2023-07-15 09:16] VITALS: BP 108/72; PULSE 85; TEMP 98
[2023-07-15] MEDS: amLODIPine BESYLATE 2.5 MG TABLET (FP) PO SCH (09:58)
== END 2023-07-15 10:53 | disposition home or self-care (01) | DRG 774 ==
LOC: YASAS 15:29 → Y3N 21:05 → Y6N 07-08 01:33
PROVIDERS: ADMIT Allergy & Immunology; ATTEND Surgery
PROC: HZ2ZZZZ Detoxification Services for Substance Abuse Treatment (ICD-10-PCS; principal; 2023-07-09)
DX: F10.230 Alcohol dependence with withdrawal, uncomplicated (principal); F14.20 Cocaine dependence, uncomplicated; U07.1 COVID-19; E78.5 Hyperlipidemia, unspecified; I10 Essential (primary) hypertension; K21.9 Gastro-esophageal reflux disease without esophagitis; M54.50 Low back pain, unspecified; G89.29 Other chronic pain; Z86.59 Personal history of other mental and behavioral disorders
CPT/HCPCS: 36415; 80053; 80307; 85027; 86780; 87635

== ENCOUNTER 2023-10-13 13:29 | Inpatient (IN) | payer OTHER ==
[2023-10-13 14:21] VITALS: BMI 34.9
[2023-10-13] MEDS ORDERED: ACETAMINOPHEN 325 MG TABLET (FP) PO PRN (16:10)
[2023-10-13] MEDS ORDERED: LOPERAMIDE HCL 2 MG CAPSULE PO PRN (16:10)
[2023-10-13] MEDS ORDERED: guaiFENesin 600 MG TABLET.ER (FP) PO PRN (16:10)
[2023-10-13] MEDS ORDERED: BENZOCAINE/MENTHOL (CHLORASEPTIC ) LOZENGE MM PRN (16:10)
[2023-10-13] MEDS ORDERED: POLYETHYLENE GLYCOL (HEALTHYLAX) 3350 17 GM PACKET PO PRN (16:10)
[2023-10-13] MEDS ORDERED: MAGNESIUM HYDROX 2400MG/30ML ORAL SUSPENSION 30 ML CUP PO PRN (16:10)
[2023-10-13] MEDS ORDERED: IBUPROFEN 400 MG TABLET (FP) PO PRN (16:10)
[2023-10-13] MEDS ORDERED: hydrOXYzine PAMOATE 25 MG CAPSULE (FP) PO PRN (16:10)
[2023-10-13] MEDS ORDERED: MAG HYDROX/AL HYDROX/SIMETH 30 ML UNIT-DOSE CUP PO PRN (16:10)
[2023-10-13] MEDS ORDERED: NALOXONE HCL 0.4 MG/ML VIAL IM PRN (16:10)
[2023-10-13] MEDS ORDERED: NALOXONE HCL (KLOXXADO) 8 MG SPRAY NS PRN (16:10)
[2023-10-13] MEDS: PRENATAL VITAMINS W/ FOLIC ACID TABLET (FP) PO SCH (18:24)
[2023-10-13 18:50] VITALS: RESP 18
[2023-10-13] MEDS: TUBERCULIN PPD 5 TU/0.1ML SYRINGE (IN PATIENT USE ONLY) ID ONE (20:38)
[2023-10-13] MEDS: MELATONIN 5 MG TABLETS PO SCH (23:03)
[2023-10-13] MEDS: THIAMINE HCL 100 MG TABLET (FP) PO SCH (23:03)
[2023-10-14] MEDS: IBUPROFEN 600 MG TABLET (FP) PO PRN (06:16)
[2023-10-14] MEDS: HYDROCHLOROTHIAZIDE 25 MG TABLET (FP) PO SCH (09:13)
[2023-10-14] MEDS: FOLIC ACID 1 MG TABLET (FP) PO SCH (09:13)
[2023-10-15] MEDS: BENZONATATE 200 MG CAPSULE PO PRN (21:36)
[2023-10-16 14:28] LABS: PH,URINE 5.5 (5.0-8.0); URINE APPEARANCE CLEAR; URINE BILIRUBIN NEGATIVE (NEGATIVE); URINE COLOR YELLOW; URINE GLUCOSE (UA) NEGATIVE (NEGATIVE); URINE KETONE TRACE (NEGATIVE); URINE LEUK ESTERASE NEGATIVE (NEGATIVE); URINE NITRITE NEGATIVE (NEGATIVE); URINE PROTEIN NEGATIVE (NEGATIVE); URINE UROBILINOGEN 0.2 mg/dL (0.2-1.0)
[2023-10-17] MEDS: guaiFENesin 200 MG/10 ML 10 ML UNIT-DOSE CUPS PO PRN (14:04)
[2023-10-20 06:48] VITALS: BP 123/70; PULSE 71; TEMP 97.4
== END 2023-10-20 07:38 | disposition home or self-care (01) | DRG 772 ==
LOC: YASAS 13:29 → Y3NR 16:47 → Y5N 10-14 15:05
PROVIDERS: ADMIT Allergy & Immunology; ATTEND Psychiatry & Neurology Pain Medicine
PROC: HZ42ZZZ Group Counseling for Substance Abuse Treatment, Cognitive-Behavioral (ICD-10-PCS; principal; 2023-10-13)
DX: F14.20 Cocaine dependence, uncomplicated (principal); F10.20 Alcohol dependence, uncomplicated; F41.9 Anxiety disorder, unspecified; I10 Essential (primary) hypertension; K21.9 Gastro-esophageal reflux disease without esophagitis; Z59.01 Sheltered homelessness
CPT/HCPCS: 81003; 86480; 93005; 93010

== ENCOUNTER 2023-11-21 15:42 | Inpatient (IN) | payer OTHER ==
[2023-11-21 17:53] VITALS: BMI 37.3
[2023-11-21] MEDS ORDERED: diazePAM 5 MG TABLET PO PRN (19:50)
[2023-11-21] MEDS ORDERED: BENZONATATE 200 MG CAPSULE PO PRN (20:15)
[2023-11-21] MEDS ORDERED: ONDANSETRON *ODT* 4 MG TABLET SL PRN (20:15)
[2023-11-21] MEDS ORDERED: guaiFENesin 600 MG TABLET.ER (FP) PO PRN (20:15)
[2023-11-21] MEDS ORDERED: hydrOXYzine PAMOATE 25 MG CAPSULE (FP) PO PRN (20:15)
[2023-11-21] MEDS ORDERED: LOPERAMIDE HCL 2 MG CAPSULE PO PRN (20:15)
[2023-11-21] MEDS ORDERED: BENZOCAINE/MENTHOL (CHLORASEPTIC ) LOZENGE MM PRN (20:15)
[2023-11-21] MEDS ORDERED: MAGNESIUM HYDROX 2400MG/30ML ORAL SUSPENSION 30 ML CUP PO PRN (20:15)
[2023-11-21] MEDS ORDERED: BISMUTH SUBSALICYLATE 524 MG/30 ML PO PRN (20:15)
[2023-11-21] MEDS ORDERED: METHOCARBAMOL 500 MG TABLET PO PRN (20:15)
[2023-11-21] MEDS ORDERED: ACETAMINOPHEN 325 MG TABLET (FP) PO PRN (20:15)
[2023-11-21] MEDS ORDERED: POLYETHYLENE GLYCOL (HEALTHYLAX) 3350 17 GM PACKET PO PRN (20:15)
[2023-11-21] MEDS ORDERED: MAG HYDROX/AL HYDROX/SIMETH 30 ML UNIT-DOSE CUP PO PRN (20:15)
[2023-11-21] MEDS ORDERED: IBUPROFEN 400 MG TABLET (FP) PO PRN (20:15)
[2023-11-21] MEDS ORDERED: DICYCLOMINE HCL 10 MG CAPSULE PO PRN (20:15)
[2023-11-21] MEDS: THIAMINE 100 MG TABLET PO SCH (22:43)
[2023-11-21] MEDS: MELATONIN 5 MG TABLETS PO SCH (22:43)
[2023-11-21] MEDS: diazePAM 5 MG TABLET PO SCH (22:43)
[2023-11-21] MEDS: IBUPROFEN 600 MG TABLET (FP) PO PRN (23:30)
[2023-11-22] MEDS: FOLIC ACID 1 MG TABLET (FP) PO SCH (09:15)
[2023-11-22] MEDS: PRENATAL VITAMINS W/ FOLIC ACID TABLET (FP) PO SCH (09:15)
[2023-11-22 12:30] LABS: HEMATOCRIT 37.3 % (35.4-49); HEMOGLOBIN 12.4 GM/dL (11.7-16.9); MCH 30.6 pg (25.7-33.7); MCHC 33.4 g/dl (32.0-35.9); MEAN CELL VOLUME 91.6 fl (80-96); MEAN PLT VOLUME 8.5 fl (7.5-11.1); PLATELET COUNT 238 10^3/uL (134-434); RBC 4.07 M/mm3 (4.00-5.60); RDW 15.6 % (11.9-15.9); WHITE BLOOD COUNT 4.9 K/mm3 (4.0-10.0)
[2023-11-22 12:59] LABS: POTASSIUM 4.6 mmol/L (3.5-5.1)
[2023-11-22 13:04] LABS: ALBUMIN 3.5 g/dl (3.4-5.0); BLOOD UREA NITROGEN 14.4 mg/dL (7-18)
[2023-11-22 13:08] LABS: BILIRUBIN,TOTAL 0.6 mg/dL (0.2-1); TOT PROT 7.1 g/dl (6.4-8.2)
[2023-11-22] MEDS: guaiFENesin 200 MG/10 ML 10 ML UNIT-DOSE CUPS PO PRN (18:51)
[2023-11-22] MEDS: diphenhydrAMINE HCL 25 MG CAPSULE (FP) PO PRN (21:27)
[2023-11-23] MEDS: diazePAM 5 MG TABLET PO SCH (06:29)
[2023-11-24] MEDS: diazePAM 5 MG TABLET PO SCH (07:06)
[2023-11-25] MEDS: diazePAM 5 MG TABLET PO ONE (05:31)
[2023-11-25 09:16] VITALS: RESP 19; TEMP 97.3
[2023-11-25 12:50] VITALS: BP 116/71; PULSE 74
== END 2023-11-25 14:27 | disposition other institution (70) | DRG 774 ==
LOC: YASAS 15:42 → Y3N 20:49
PROVIDERS: ADMIT Allergy & Immunology; ATTEND Surgery
PROC: HZ2ZZZZ Detoxification Services for Substance Abuse Treatment (ICD-10-PCS; principal; 2023-11-21)
DX: F10.230 Alcohol dependence with withdrawal, uncomplicated (principal); F14.20 Cocaine dependence, uncomplicated; F31.9 Bipolar disorder, unspecified; F19.282 Other psychoactive substance dependence with psychoactive substance-induced sleep disorder; F19.24 Other psychoactive substance dependence with psychoactive substance-induced mood disorder; F41.9 Anxiety disorder, unspecified; E78.5 Hyperlipidemia, unspecified; I10 Essential (primary) hypertension; K21.9 Gastro-esophageal reflux disease without esophagitis; M54.50 Low back pain, unspecified; G89.29 Other chronic pain; R74.01 Elevation of levels of liver transaminase levels
CPT/HCPCS: 36415; 80053; 80305; 85027; 86780; 87811; 93005; 93010

== ENCOUNTER 2023-11-25 14:36 | Inpatient (IN) | payer OTHER ==
[2023-11-25] MEDS ORDERED: guaiFENesin 600 MG TABLET.ER (FP) PO PRN (19:20)
[2023-11-25] MEDS ORDERED: METHOCARBAMOL 500 MG TABLET PO PRN (19:20)
[2023-11-25] MEDS ORDERED: BENZONATATE 200 MG CAPSULE PO PRN (19:20)
[2023-11-25] MEDS ORDERED: BENZOCAINE/MENTHOL (CHLORASEPTIC ) LOZENGE MM PRN (19:20)
[2023-11-25] MEDS ORDERED: NALOXONE HCL 0.4 MG/ML VIAL IVPUSH PRN (19:20)
[2023-11-25] MEDS ORDERED: hydrOXYzine PAMOATE 25 MG CAPSULE (FP) PO PRN (19:20)
[2023-11-25] MEDS ORDERED: NALOXONE (NYS OPIOID OVERDOSE PROGRAM) 4 MG/0.1 ML SPRAY NS PRN (19:20)
[2023-11-25] MEDS ORDERED: POLYETHYLENE GLYCOL (HEALTHYLAX) 3350 17 GM PACKET PO PRN (19:20)
[2023-11-25] MEDS ORDERED: LOPERAMIDE HCL 2 MG CAPSULE PO PRN (19:20)
[2023-11-25] MEDS ORDERED: ACETAMINOPHEN 325 MG TABLET (FP) PO PRN (19:20)
[2023-11-25] MEDS ORDERED: MAGNESIUM HYDROX 2400MG/30ML ORAL SUSPENSION 30 ML CUP PO PRN (19:20)
[2023-11-25] MEDS: IBUPROFEN 600 MG TABLET (FP) PO PRN (20:39)
[2023-11-25] MEDS: THIAMINE 100 MG TABLET PO SCH (22:08)
[2023-11-25] MEDS: diphenhydrAMINE HCL 25 MG CAPSULE (FP) PO ONE (22:09)
[2023-11-25] MEDS: MELATONIN 5 MG TABLETS PO SCH (22:09)
[2023-11-26] MEDS: FOLIC ACID 1 MG TABLET (FP) PO SCH (09:51)
[2023-11-26] MEDS: PRENATAL VITAMINS W/ FOLIC ACID TABLET (FP) PO SCH (09:51)
[2023-11-26] MEDS: HYDROCHLOROTHIAZIDE 12.5 MG CAPSULE (FP) PO SCH (09:56)
[2023-11-26] MEDS: amLODIPine BESYLATE 2.5 MG TABLET (FP) PO SCH (09:57)
[2023-11-26] MEDS ORDERED: diphenhydrAMINE HCL 25 MG CAPSULE (FP) PO PRN (12:49)
[2023-11-27 11:39] LABS: INR 1.06 (0.83-1.09)
[2023-11-28] MEDS: IBUPROFEN 400 MG TABLET (FP) PO PRN (09:27)
[2023-11-28] MEDS: CHOLECALCIFEROL (VIT D3) 400 UNIT (10 MCG) TABLET PO SCH (09:27)
[2023-11-28] MEDS: BENZOCAINE 28 GM HEMORRHOIDAL OINTMENT RC PRN (10:17)
[2023-11-29] MEDS: MAG HYDROX/AL HYDROX/SIMETH 30 ML UNIT-DOSE CUP PO PRN (14:01)
[2023-12-02] MEDS ORDERED: BENZONATATE 200 MG CAPSULE PO PRN (09:49)
[2023-12-02] MEDS ORDERED: guaiFENesin 600 MG TABLET.ER (FP) PO PRN (09:49)
[2023-12-02] MEDS: guaiFENesin 200 MG/10 ML 10 ML UNIT-DOSE CUPS PO PRN (11:10)
[2023-12-04 07:15] VITALS: RESP 18; TEMP 98.1
[2023-12-04 09:23] VITALS: BP 112/72; PULSE 89
== END 2023-12-04 09:47 | disposition home or self-care (01) | DRG 772 ==
LOC: YASAS 14:36 → Y5N 14:38
PROVIDERS: ADMIT Allergy & Immunology; ATTEND Psychiatry & Neurology Pain Medicine
PROC: HZ42ZZZ Group Counseling for Substance Abuse Treatment, Cognitive-Behavioral (ICD-10-PCS; principal; 2023-11-25)
DX: F10.20 Alcohol dependence, uncomplicated (principal); F14.20 Cocaine dependence, uncomplicated; F19.282 Other psychoactive substance dependence with psychoactive substance-induced sleep disorder; F19.24 Other psychoactive substance dependence with psychoactive substance-induced mood disorder; F32.A Depression, unspecified; E72.20 Disorder of urea cycle metabolism, unspecified; E78.5 Hyperlipidemia, unspecified; I10 Essential (primary) hypertension; J06.9 Acute upper respiratory infection, unspecified; M54.50 Low back pain, unspecified; G89.29 Other chronic pain; Z56.0 Unemployment, unspecified
CPT/HCPCS: 0241U-QW; 36415; 82140; 82306; 83735; 85610

== ENCOUNTER 2024-01-03 08:33 | Inpatient (IN) | payer OTHER ==
[2024-01-03 09:21] VITALS: BMI 36.7
[2024-01-03] MEDS ORDERED: ACETAMINOPHEN 325 MG TABLET (FP) PO PRN (09:51)
[2024-01-03] MEDS ORDERED: MAG HYDROX/AL HYDROX/SIMETH 30 ML UNIT-DOSE CUP PO PRN (09:51)
[2024-01-03] MEDS ORDERED: LORazepam 1 MG TABLET PO PRN (09:51)
[2024-01-03] MEDS ORDERED: METHOCARBAMOL 500 MG TABLET PO PRN (09:51)
[2024-01-03] MEDS ORDERED: MAGNESIUM HYDROX 2400MG/30ML ORAL SUSPENSION 30 ML CUP PO PRN (09:51)
[2024-01-03] MEDS ORDERED: BISMUTH SUBSALICYLATE 524 MG/30 ML PO PRN (09:51)
[2024-01-03] MEDS ORDERED: guaiFENesin 600 MG TABLET.ER (FP) PO PRN (09:51)
[2024-01-03] MEDS ORDERED: ONDANSETRON *ODT* 4 MG TABLET SL PRN (09:51)
[2024-01-03] MEDS ORDERED: BENZOCAINE/MENTHOL (CHLORASEPTIC ) LOZENGE MM PRN (09:51)
[2024-01-03] MEDS ORDERED: LOPERAMIDE HCL 2 MG CAPSULE PO PRN (09:51)
[2024-01-03] MEDS ORDERED: NALOXONE (NARCAN) HCL 4 MG/0.1 ML SPRAY NS PRN (09:51)
[2024-01-03] MEDS ORDERED: DICYCLOMINE HCL 10 MG CAPSULE PO PRN (09:51)
[2024-01-03] MEDS ORDERED: NALOXONE HCL 0.4 MG/ML VIAL IM PRN (09:51)
[2024-01-03] MEDS ORDERED: PRENATAL VITAMINS W/ FOLIC ACID TABLET (FP) PO ONE (10:30)
[2024-01-03] MEDS: PRENATAL VITAMINS W/ FOLIC ACID TABLET (FP) PO SCH (10:30)
[2024-01-03] MEDS: IBUPROFEN 600 MG TABLET (FP) PO PRN (12:51)
[2024-01-03] MEDS: POLYETHYLENE GLYCOL (HEALTHYLAX) 3350 17 GM PACKET PO PRN (16:12)
[2024-01-03] MEDS: LORazepam 2 MG TABLET PO SCH (18:01)
[2024-01-03] MEDS ORDERED: diphenhydrAMINE HCL 25 MG CAPSULE (FP) PO PRN (22:00)
[2024-01-03] MEDS ORDERED: MELATONIN 5 MG TABLETS PO SCH (22:00)
[2024-01-03] MEDS: THIAMINE 100 MG TABLET PO SCH (23:42)
[2024-01-04] MEDS: BENZONATATE 200 MG CAPSULE PO PRN (04:07)
[2024-01-04] MEDS: IBUPROFEN 400 MG TABLET (FP) PO PRN (06:22)
[2024-01-04] MEDS: LORATADINE 10 MG TABLET PO SCH (23:52)
[2024-01-05] MEDS: LORazepam 1 MG TABLET PO SCH (05:19)
[2024-01-05 06:38] VITALS: RESP 18
[2024-01-05 09:44] VITALS: BP 124/61; PULSE 70; TEMP 98
[2024-01-05] MEDS: LORazepam 0.5 MG TABLET PO SCH (09:59)
[2024-01-05 11:53] LABS: CHLORIDE 109 mmol/L (98-107); POTASSIUM 4.4 mmol/L (3.5-5.1); SODIUM 142 mmol/L (136-145)
[2024-01-05 11:54] LABS: HEMATOCRIT 35.7 % (35.4-49); MCH 31.3 pg (25.7-33.7); MCHC 33.7 g/dl (32.0-35.9); MEAN CELL VOLUME 92.7 fl (80-96); MEAN PLT VOLUME 8.5 fl (7.5-11.1); PLATELET COUNT 265 10^3/uL (134-434); RBC 3.85 M/mm3 (4.00-5.60); RDW 15.6 % (11.9-15.9); WHITE BLOOD COUNT 4.4 K/mm3 (4.0-10.0)
[2024-01-05 12:06] LABS: ALBUMIN 3.7 g/dl (3.4-5.0); BLOOD UREA NITROGEN 15.4 mg/dL (7-18); CALCIUM 9.3 mg/dL (8.5-10.1)
[2024-01-05 12:10] LABS: ANION GAP 6 mmol/L (4-13); CO2 27 mmol/L (21-32); GLUCOSE,RANDOM 103 mg/dL (74-106)
[2024-01-05 12:11] LABS: TOT PROT 7.5 g/dl (6.4-8.2)
[2024-01-05 12:13] LABS: ALK PHOS 75 U/L (45-117); BILIRUBIN,TOTAL 0.4 mg/dL (0.2-1); SGOT/AST 58 U/L (15-37)
[2024-01-05 12:20] LABS: SGPT/ALT 103 U/L (13-61)
[2024-01-06] MEDS ORDERED: LORazepam 0.5 MG TABLET PO PRN
[2024-01-06] MEDS ORDERED: LORazepam 0.5 MG TABLET PO SCH (05:00)
[2024-01-07] MEDS ORDERED: LORazepam 0.5 MG TABLET PO ONE (05:00)
== END 2024-01-05 10:35 | disposition left against medical advice (07) | DRG 770 ==
LOC: YASAS 08:33 → Y6N 09:53
PROVIDERS: ADMIT Allergy & Immunology; ATTEND Surgery
PROC: HZ2ZZZZ Detoxification Services for Substance Abuse Treatment (ICD-10-PCS; principal; 2024-01-03)
DX: F10.230 Alcohol dependence with withdrawal, uncomplicated (principal); F14.20 Cocaine dependence, uncomplicated; F11.10 Opioid abuse, uncomplicated; F19.282 Other psychoactive substance dependence with psychoactive substance-induced sleep disorder; F31.9 Bipolar disorder, unspecified; F41.9 Anxiety disorder, unspecified; E78.5 Hyperlipidemia, unspecified; I10 Essential (primary) hypertension; K21.9 Gastro-esophageal reflux disease without esophagitis; M54.50 Low back pain, unspecified; G89.29 Other chronic pain; Z87.891 Personal history of nicotine dependence
CPT/HCPCS: 36415; 80053; 80305; 80307; 82140; 85027; 86780; 93005; 93010

== ENCOUNTER 2024-02-09 13:31 | Inpatient (IN) | payer OTHER ==
[2024-02-09 14:39] VITALS: BMI 36.9
[2024-02-09] MEDS ORDERED: LOPERAMIDE HCL 2 MG CAPSULE PO PRN (17:19)
[2024-02-09] MEDS ORDERED: guaiFENesin 600 MG TABLET.ER (FP) PO PRN (17:19)
[2024-02-09] MEDS ORDERED: MAG HYDROX/AL HYDROX/SIMETH 30 ML UNIT-DOSE CUP PO PRN (17:19)
[2024-02-09] MEDS ORDERED: METHOCARBAMOL 500 MG TABLET PO PRN (17:19)
[2024-02-09] MEDS ORDERED: ACETAMINOPHEN 325 MG TABLET (FP) PO PRN (17:19)
[2024-02-09] MEDS ORDERED: IBUPROFEN 400 MG TABLET (FP) PO PRN (17:19)
[2024-02-09] MEDS ORDERED: hydrOXYzine PAMOATE 25 MG CAPSULE (FP) PO PRN (17:19)
[2024-02-09] MEDS ORDERED: POLYETHYLENE GLYCOL (HEALTHYLAX) 3350 17 GM PACKET PO PRN (17:19)
[2024-02-09] MEDS ORDERED: BENZONATATE 200 MG CAPSULE PO PRN (17:19)
[2024-02-09] MEDS ORDERED: BENZOCAINE/MENTHOL (CHLORASEPTIC ) LOZENGE MM PRN (17:19)
[2024-02-09] MEDS ORDERED: MAGNESIUM HYDROX 2400MG/30ML ORAL SUSPENSION 30 ML CUP PO PRN (17:19)
[2024-02-09] MEDS: THIAMINE 100 MG TABLET PO SCH (21:26)
[2024-02-09] MEDS ORDERED: MELATONIN 5 MG TABLETS PO SCH (22:00)
[2024-02-09] MEDS ORDERED: diphenhydrAMINE HCL 25 MG CAPSULE (FP) PO PRN (22:00)
[2024-02-10] MEDS: PRENATAL VITAMINS W/ FOLIC ACID TABLET (FP) PO SCH (09:41)
[2024-02-11] MEDS: PRENATAL VITAMINS W/ FOLIC ACID TABLET (FP) PO SCH (07:45)
[2024-02-11 12:04] LABS: HEMATOCRIT 38.6 % (35.4-49); HEMOGLOBIN 12.7 GM/dL (11.7-16.9); MCH 30.8 pg (25.7-33.7); MCHC 32.9 g/dl (32.0-35.9); MEAN CELL VOLUME 93.6 fl (80-96); MEAN PLT VOLUME 8.5 fl (7.5-11.1); PLATELET COUNT 226 10^3/uL (134-434); RBC 4.12 M/mm3 (4.00-5.60); RDW 15.1 % (11.9-15.9); WHITE BLOOD COUNT 4.6 K/mm3 (4.0-10.0)
[2024-02-11 12:12] LABS: INR 1.12 (0.83-1.09); PROTHROMBIN TIME (PATIENT) 12.8 SEC (9.7-13.0)
[2024-02-11 12:57] LABS: POTASSIUM 4.2 mmol/L (3.5-5.1)
[2024-02-11 12:59] LABS: CALCIUM 9.7 mg/dL (8.5-10.1)
[2024-02-11 13:00] LABS: ALBUMIN 3.8 g/dl (3.4-5.0); BLOOD UREA NITROGEN 14.2 mg/dL (7-18)
[2024-02-11 13:03] LABS: CREATININE 1.1 mg/dL (0.55-1.3)
[2024-02-11 13:04] LABS: BILIRUBIN,TOTAL 0.5 mg/dL (0.2-1)
[2024-02-11 13:05] LABS: TOT PROT 7.8 g/dl (6.4-8.2)
[2024-02-11] MEDS: IBUPROFEN 600 MG TABLET (FP) PO PRN (17:25)
[2024-02-12] MEDS: LACTULOSE 20 GM/30 ML UDC (FOR ORAL USE ONLY) PO SCH (10:10)
[2024-02-17] MEDS: METHYL SALICYLATE/MENTHOL OINT 30 GM TUBE TP SCH (10:46)
[2024-02-18] MEDS: CHOLECALCIFEROL (VIT D3) 400 UNIT (10 MCG) TABLET PO SCH (12:36)
[2024-02-19 06:43] VITALS: TEMP 97.1
[2024-02-19 09:45] VITALS: BP 153/79; PULSE 85
[2024-02-19 11:37] VITALS: RESP 18
== END 2024-02-19 08:50 | disposition home or self-care (01) | DRG 772 ==
LOC: YASAS 13:31 → Y3NR 17:28 → Y5N 02-10 12:29
PROVIDERS: ADMIT Allergy & Immunology; ATTEND Psychiatry & Neurology Pain Medicine
PROC: HZ42ZZZ Group Counseling for Substance Abuse Treatment, Cognitive-Behavioral (ICD-10-PCS; principal; 2024-02-09)
DX: F10.20 Alcohol dependence, uncomplicated (principal); F14.20 Cocaine dependence, uncomplicated; F32.A Depression, unspecified; I10 Essential (primary) hypertension; E78.5 Hyperlipidemia, unspecified; M54.59 Other low back pain; G89.29 Other chronic pain; W07.XXXA Fall from chair, initial encounter; Y93.89 Activity, other specified; Y92.238 Other place in hospital as the place of occurrence of the external cause
CPT/HCPCS: 36415; 80053; 80305; 80307; 82140; 82652; 83036; 83735; 85027; 85610; 86780; 87811

== ENCOUNTER 2024-03-08 19:30 | Emergency (ER) | payer OTHER ==
[2024-03-08 19:43] VITALS: TEMP 98; BMI 35.9
[2024-03-08 20:59] LABS: EOS % 1.5 % (0-4.5); HEMATOCRIT 35.8 % (35.4-49); HEMOGLOBIN 12.1 GM/dL (11.7-16.9); MCH 31.2 pg (25.7-33.7); MCHC 33.8 g/dl (32.0-35.9); MEAN CELL VOLUME 92.3 fl (80-96); MEAN PLT VOLUME 7.9 fl (7.5-11.1); MONO % 11.4 % (3.8-10.2); NEUT % 51.1 % (42.8-82.8); PLATELET COUNT 300 10^3/uL (134-434); RBC 3.88 M/mm3 (4.00-5.60); RDW 15.2 % (11.9-15.9); WHITE BLOOD COUNT 5.2 K/mm3 (4.0-10.0)
[2024-03-08 21:25] LABS: POTASSIUM 4.5 mmol/L (3.5-5.1)
[2024-03-08 21:27] LABS: CALCIUM 9.1 mg/dL (8.5-10.1)
[2024-03-08 21:28] LABS: ALBUMIN 3.8 g/dl (3.4-5.0); BLOOD UREA NITROGEN 20.4 mg/dL (7-18)
[2024-03-08 21:31] LABS: CREATININE 1.1 mg/dL (0.55-1.3)
[2024-03-08 21:33] LABS: BILIRUBIN,TOTAL 0.9 mg/dL (0.2-1); TOT PROT 7.5 g/dl (6.4-8.2)
[2024-03-08 21:35] LABS: N-TERMINAL BNP 46.7 pg/ml (5-125)
[2024-03-08] MEDS ORDERED: KETOROLAC TROMETHAMINE 15 MG/ML VIAL ONE (21:41)
[2024-03-08] MEDS: KETOROLAC TROMETHAMINE 15 MG/ML VIAL IVPUSH ONE (21:47)
[2024-03-08] MEDS: KETOROLAC TROMETHAMINE 30 MG/1 ML VIAL IM ONE (21:54)
[2024-03-09 00:25] VITALS: BP 101/57; PULSE 72; RESP 16
== END 2024-03-09 00:25 | disposition home or self-care (01) ==
LOC: JER 19:30
PROC: 3E0333Z Introduction of Anti-inflammatory into Peripheral Vein, Percutaneous Approach (ICD-10-PCS; principal; 2024-03-08)
DX: R06.02 Shortness of breath (principal); F10.20 Alcohol dependence, uncomplicated; R07.9 Chest pain, unspecified; U07.1 COVID-19; Y90.9 Presence of alcohol in blood, level not specified
CPT/HCPCS: 36415; 71046-TC-FY; 71275-TC; 80053; 82550; 82553; 83880; 84484; 85025; 93005; 93010; 99285-25; Q9967

== ENCOUNTER 2024-03-18 13:37 | Inpatient (IN) | payer OTHER ==
[2024-03-18 14:37] VITALS: BMI 36.6
[2024-03-18] MEDS ORDERED: MAGNESIUM HYDROX 2400MG/30ML ORAL SUSPENSION 30 ML CUP PO PRN (17:29)
[2024-03-18] MEDS ORDERED: METHOCARBAMOL 500 MG TABLET PO PRN (17:29)
[2024-03-18] MEDS ORDERED: ONDANSETRON *ODT* 4 MG TABLET SL PRN (17:29)
[2024-03-18] MEDS ORDERED: MAG HYDROX/AL HYDROX/SIMETH 30 ML UNIT-DOSE CUP PO PRN (17:29)
[2024-03-18] MEDS ORDERED: BENZOCAINE/MENTHOL (CHLORASEPTIC ) LOZENGE MM PRN (17:29)
[2024-03-18] MEDS ORDERED: IBUPROFEN 400 MG TABLET (FP) PO PRN (17:29)
[2024-03-18] MEDS ORDERED: BISMUTH SUBSALICYLATE 524 MG/30 ML PO PRN (17:29)
[2024-03-18] MEDS ORDERED: POLYETHYLENE GLYCOL (HEALTHYLAX) 3350 17 GM PACKET PO PRN (17:29)
[2024-03-18] MEDS ORDERED: DICYCLOMINE HCL 10 MG CAPSULE PO PRN (17:29)
[2024-03-18] MEDS ORDERED: ACETAMINOPHEN 325 MG TABLET (FP) PO PRN (17:29)
[2024-03-18] MEDS ORDERED: hydrOXYzine PAMOATE 25 MG CAPSULE (FP) PO PRN (17:29)
[2024-03-18] MEDS ORDERED: guaiFENesin 600 MG TABLET.ER (FP) PO PRN (17:29)
[2024-03-18] MEDS ORDERED: BENZONATATE 200 MG CAPSULE PO PRN (17:29)
[2024-03-18] MEDS ORDERED: LOPERAMIDE HCL 2 MG CAPSULE PO PRN (17:29)
[2024-03-18] MEDS ORDERED: NALOXONE (NARCAN) HCL 4 MG/0.1 ML SPRAY NS PRN (17:29)
[2024-03-18] MEDS ORDERED: NALOXONE HCL 0.4 MG/ML VIAL IM PRN (17:29)
[2024-03-18] MEDS: MELATONIN 5 MG TABLETS PO SCH (22:30)
[2024-03-18] MEDS: THIAMINE 100 MG TABLET PO SCH (22:30)
[2024-03-19] MEDS ORDERED: LORazepam 1 MG TABLET PO PRN (09:53)
[2024-03-19] MEDS: LORazepam 2 MG TABLET PO SCH (10:03)
[2024-03-19] MEDS: PRENATAL VITAMINS W/ FOLIC ACID TABLET (FP) PO SCH (10:03)
[2024-03-19] MEDS: IBUPROFEN 600 MG TABLET (FP) PO PRN (16:58)
[2024-03-20 11:55] LABS: CHLORIDE 107 mmol/L (98-107); HEMATOCRIT 35.4 % (35.4-49); HEMOGLOBIN 11.9 GM/dL (11.7-16.9); MCH 31.6 pg (25.7-33.7); MCHC 33.5 g/dl (32.0-35.9); MEAN CELL VOLUME 94.1 fl (80-96); MEAN PLT VOLUME 8.9 fl (7.5-11.1); PLATELET COUNT 236 10^3/uL (134-434); POTASSIUM 4.2 mmol/L (3.5-5.1); RBC 3.76 M/mm3 (4.00-5.60); RDW 15.8 % (11.9-15.9); SODIUM 140 mmol/L (136-145); WHITE BLOOD COUNT 4.3 K/mm3 (4.0-10.0)
[2024-03-20 12:00] LABS: ALBUMIN 3.5 g/dl (3.4-5.0); ANION GAP 6 mmol/L (4-13); BLOOD UREA NITROGEN 14.4 mg/dL (7-18); CO2 28 mmol/L (21-32); GLUCOSE,RANDOM 88 mg/dL (74-106)
[2024-03-20 12:04] LABS: SGOT/AST 47 U/L (15-37); SGPT/ALT 54 U/L (13-61)
[2024-03-20 12:06] LABS: ALK PHOS 77 U/L (45-117); BILIRUBIN,TOTAL 0.4 mg/dL (0.2-1); TOT PROT 6.8 g/dl (6.4-8.2)
[2024-03-20] MEDS: diphenhydrAMINE HCL 25 MG CAPSULE (FP) PO PRN (21:48)
[2024-03-21] MEDS: LORazepam 1 MG TABLET PO SCH (05:49)
[2024-03-22] MEDS ORDERED: LORazepam 0.5 MG TABLET PO PRN
[2024-03-22] MEDS: LORazepam 0.5 MG TABLET PO SCH (05:36)
[2024-03-22 12:36] VITALS: RESP 18; TEMP 97.7
[2024-03-22 16:58] VITALS: BP 132/61; PULSE 67
[2024-03-23] MEDS ORDERED: LORazepam 0.5 MG TABLET PO ONE (05:00)
== END 2024-03-22 17:35 | disposition home or self-care (01) | DRG 774 ==
LOC: YASAS 13:37 → Y6N 18:10
PROVIDERS: ADMIT Allergy & Immunology; ATTEND Psychiatry & Neurology Pain Medicine
PROC: HZ2ZZZZ Detoxification Services for Substance Abuse Treatment (ICD-10-PCS; principal; 2024-03-18)
DX: F10.230 Alcohol dependence with withdrawal, uncomplicated (principal); F14.20 Cocaine dependence, uncomplicated; F39 Unspecified mood [affective] disorder; F19.282 Other psychoactive substance dependence with psychoactive substance-induced sleep disorder; F32.A Depression, unspecified; F41.9 Anxiety disorder, unspecified; E78.5 Hyperlipidemia, unspecified; I10 Essential (primary) hypertension; K21.9 Gastro-esophageal reflux disease without esophagitis; M54.50 Low back pain, unspecified; G89.29 Other chronic pain
CPT/HCPCS: 36415; 80053; 80305; 80307; 85027; 86780; 93005; 93010

== ENCOUNTER 2024-04-14 17:43 | Inpatient (IN) | payer OTHER ==
[2024-04-14 18:05] VITALS: BMI 38.2
[2024-04-14] MEDS ORDERED: diazePAM 5 MG TABLET PO PRN (20:03)
[2024-04-14] MEDS ORDERED: ACETAMINOPHEN 325 MG TABLET (FP) PO PRN (20:06)
[2024-04-14] MEDS ORDERED: POLYETHYLENE GLYCOL (HEALTHYLAX) 3350 17 GM PACKET PO PRN (20:06)
[2024-04-14] MEDS ORDERED: P-EPHED 60MG/TRIPROLIDI 2.5MG TABLET PO PRN (20:06)
[2024-04-14] MEDS ORDERED: guaiFENesin 600 MG TABLET.ER (FP) PO PRN (20:06)
[2024-04-14] MEDS ORDERED: MAGNESIUM HYDROX 2400MG/30ML ORAL SUSPENSION 30 ML CUP PO PRN (20:06)
[2024-04-14] MEDS ORDERED: MAG HYDROX/AL HYDROX/SIMETH 30 ML UNIT-DOSE CUP PO PRN (20:06)
[2024-04-14] MEDS ORDERED: hydrOXYzine PAMOATE 25 MG CAPSULE (FP) PO PRN (20:06)
[2024-04-14] MEDS ORDERED: BENZOCAINE/MENTHOL (CHLORASEPTIC ) LOZENGE MM PRN (20:06)
[2024-04-14] MEDS ORDERED: LOPERAMIDE HCL 2 MG CAPSULE PO PRN (20:06)
[2024-04-14] MEDS ORDERED: METHOCARBAMOL 500 MG TABLET PO PRN (20:06)
[2024-04-14] MEDS ORDERED: BENZONATATE 200 MG CAPSULE PO PRN (20:06)
[2024-04-14] MEDS ORDERED: IBUPROFEN 400 MG TABLET (FP) PO PRN (20:06)
[2024-04-14] MEDS ORDERED: DICYCLOMINE HCL 10 MG CAPSULE PO PRN (20:06)
[2024-04-14] MEDS: ONDANSETRON *ODT* 4 MG TABLET SL PRN (21:18)
[2024-04-14] MEDS: THIAMINE 100 MG TABLET PO SCH (22:29)
[2024-04-14] MEDS: MELATONIN 5 MG TABLETS PO SCH (22:29)
[2024-04-14] MEDS: diazePAM 5 MG TABLET PO SCH (23:45)
[2024-04-15] MEDS: diazePAM 5 MG TABLET PO ONE (05:31)
[2024-04-15] MEDS: PRENATAL VITAMINS W/ FOLIC ACID TABLET (FP) PO SCH (09:52)
[2024-04-15] MEDS: HYDROCHLOROTHIAZIDE 25 MG TABLET (FP) PO SCH (09:52)
[2024-04-15] MEDS: IBUPROFEN 600 MG TABLET (FP) PO PRN (11:55)
[2024-04-16] MEDS: diazePAM 5 MG TABLET PO SCH (05:39)
[2024-04-17] MEDS: BISMUTH SUBSALICYLATE 524 MG/30 ML PO PRN (04:42)
[2024-04-17] MEDS: diazePAM 5 MG TABLET PO SCH (05:26)
[2024-04-20 06:14] VITALS: BP 127/77; PULSE 77; RESP 17; TEMP 97.7
== END 2024-04-20 06:47 | disposition home or self-care (01) | DRG 774 ==
LOC: YASAS 17:43 → Y6N 20:27
PROVIDERS: ADMIT Allergy & Immunology; ATTEND Surgery
PROC: HZ2ZZZZ Detoxification Services for Substance Abuse Treatment (ICD-10-PCS; principal; 2024-04-15)
DX: F10.230 Alcohol dependence with withdrawal, uncomplicated (principal); F14.20 Cocaine dependence, uncomplicated; F41.9 Anxiety disorder, unspecified; F32.A Depression, unspecified; E78.5 Hyperlipidemia, unspecified; I10 Essential (primary) hypertension; M54.50 Low back pain, unspecified; G89.29 Other chronic pain; Z59.01 Sheltered homelessness
CPT/HCPCS: 80305; 80307; Q0162

== ENCOUNTER 2024-05-23 10:09 | Inpatient (IN) | payer OTHER ==
[2024-05-23 10:38] VITALS: BMI 36.4
[2024-05-23] MEDS ORDERED: DICYCLOMINE HCL 10 MG CAPSULE PO PRN (11:24)
[2024-05-23] MEDS ORDERED: NALOXONE (NARCAN) HCL 4 MG/0.1 ML SPRAY NS PRN (11:24)
[2024-05-23] MEDS ORDERED: POLYETHYLENE GLYCOL (HEALTHYLAX) 3350 17 GM PACKET PO PRN (11:24)
[2024-05-23] MEDS ORDERED: BISMUTH SUBSALICYLATE 524 MG/30 ML PO PRN (11:24)
[2024-05-23] MEDS ORDERED: ONDANSETRON *ODT* 4 MG TABLET SL PRN (11:24)
[2024-05-23] MEDS ORDERED: LORazepam 1 MG TABLET PO PRN (11:24)
[2024-05-23] MEDS ORDERED: METHOCARBAMOL 500 MG TABLET PO PRN (11:24)
[2024-05-23] MEDS ORDERED: NALOXONE (NYS OPIOID OVERDOSE PROGRAM) 4 MG/0.1 ML SPRAY NS PRN (11:24)
[2024-05-23] MEDS ORDERED: MAG HYDROX/AL HYDROX/SIMETH 30 ML UNIT-DOSE CUP PO PRN (11:24)
[2024-05-23] MEDS ORDERED: hydrOXYzine PAMOATE 25 MG CAPSULE (FP) PO PRN (11:24)
[2024-05-23] MEDS ORDERED: LOPERAMIDE HCL 2 MG CAPSULE PO PRN (11:24)
[2024-05-23] MEDS ORDERED: guaiFENesin 600 MG TABLET.ER (FP) PO PRN (11:24)
[2024-05-23] MEDS ORDERED: BENZOCAINE/MENTHOL (CHLORASEPTIC ) LOZENGE MM PRN (11:24)
[2024-05-23] MEDS ORDERED: MAGNESIUM HYDROX 2400MG/30ML ORAL SUSPENSION 30 ML CUP PO PRN (11:24)
[2024-05-23] MEDS ORDERED: ACETAMINOPHEN 325 MG TABLET (FP) PO PRN (11:24)
[2024-05-23] MEDS ORDERED: BENZONATATE 200 MG CAPSULE PO PRN (11:24)
[2024-05-23] MEDS: guaiFENesin 200 MG/10 ML 10 ML UNIT-DOSE CUPS PO PRN (13:09)
[2024-05-23] MEDS: LORazepam 2 MG TABLET PO SCH (18:21)
[2024-05-23] MEDS: MELATONIN 5 MG TABLETS PO SCH (22:48)
[2024-05-23] MEDS: THIAMINE 100 MG TABLET PO SCH (22:48)
[2024-05-23] MEDS: FAMOTIDINE 20 MG TABLET PO SCH (22:48)
[2024-05-23] MEDS: IBUPROFEN 600 MG TABLET (FP) PO PRN (23:59)
[2024-05-24] MEDS: HYDROCHLOROTHIAZIDE 25 MG TABLET (FP) PO SCH (10:23)
[2024-05-24] MEDS: PRENATAL VITAMINS W/ FOLIC ACID TABLET (FP) PO SCH (10:23)
[2024-05-24 11:26] LABS: HEMATOCRIT 36.3 % (35.4-49); HEMOGLOBIN 12.1 GM/dL (11.7-16.9); MCHC 33.3 g/dl (32.0-35.9); MEAN PLT VOLUME 8.8 fl (7.5-11.1); PLATELET COUNT 189 10^3/uL (134-434); RDW 14.3 % (11.9-15.9); WHITE BLOOD COUNT 4.9 K/mm3 (4.0-10.0)
[2024-05-24 12:01] LABS: CHLORIDE 114 mmol/L (98-107); POTASSIUM 3.8 mmol/L (3.5-5.1); SODIUM 145 mmol/L (136-145)
[2024-05-24 12:11] LABS: CALCIUM 8.8 mg/dL (8.5-10.1)
[2024-05-24 12:12] LABS: ALBUMIN 3.4 g/dl (3.4-5.0); ANION GAP 6 mmol/L (4-13); BLOOD UREA NITROGEN 14.4 mg/dL (7-18); CO2 25 mmol/L (21-32); GLUCOSE,RANDOM 108 mg/dL (74-106)
[2024-05-24 12:14] LABS: CREATININE 1.2 mg/dL (0.55-1.3); SGPT/ALT 49 U/L (13-61)
[2024-05-24 12:15] LABS: ALK PHOS 99 U/L (45-117); SGOT/AST 46 U/L (15-37)
[2024-05-24 12:16] LABS: BILIRUBIN,TOTAL 0.5 mg/dL (0.2-1); TOT PROT 6.8 g/dl (6.4-8.2)
[2024-05-24] MEDS: diphenhydrAMINE HCL 25 MG CAPSULE (FP) PO PRN (22:39)
[2024-05-25] MEDS: LORazepam 1 MG TABLET PO SCH (05:55)
[2024-05-25] MEDS: AMOX TR/POT CLAV 875MG/125MG TABLETS (FP) PO SCH (13:52)
[2024-05-26] MEDS ORDERED: LORazepam 0.5 MG TABLET PO PRN
[2024-05-26] MEDS: LORazepam 0.5 MG TABLET PO SCH (05:57)
[2024-05-26 07:37] VITALS: RESP 18
[2024-05-26] MEDS: IBUPROFEN 400 MG TABLET (FP) PO PRN (18:48)
[2024-05-27] MEDS: LORazepam 0.5 MG TABLET PO ONE (06:00)
[2024-05-27 09:41] VITALS: BP 118/75; PULSE 86; TEMP 97.3
== END 2024-05-27 12:21 | disposition other institution (70) | DRG 774 ==
LOC: YASAS 10:09 → Y6N 12:00
PROVIDERS: ADMIT Surgery; ATTEND Surgery
PROC: HZ2ZZZZ Detoxification Services for Substance Abuse Treatment (ICD-10-PCS; principal; 2024-05-23)
DX: F10.230 Alcohol dependence with withdrawal, uncomplicated (principal); F14.20 Cocaine dependence, uncomplicated; F19.282 Other psychoactive substance dependence with psychoactive substance-induced sleep disorder; F39 Unspecified mood [affective] disorder; F41.9 Anxiety disorder, unspecified; I10 Essential (primary) hypertension; K21.9 Gastro-esophageal reflux disease without esophagitis; J18.9 Pneumonia, unspecified organism; M54.50 Low back pain, unspecified; G89.29 Other chronic pain
CPT/HCPCS: 36415; 71045-TC-FY; 80053; 80305; 80307; 85027; 86780; 87811; 93005; 93010

== ENCOUNTER 2024-05-27 12:47 | Inpatient (IN) | payer OTHER ==
[~2024-05-27 12:47] MED LIST: ACETAMINOPHEN 325 MG TABLET (FP) PO PRN; BENZONATATE 200 MG CAPSULE PO PRN; LOPERAMIDE HCL 2 MG CAPSULE PO PRN; MAG HYDROX/AL HYDROX/SIMETH 30 ML UNIT-DOSE CUP PO PRN; MAGNESIUM HYDROX 2400MG/30ML ORAL SUSPENSION 30 ML CUP PO PRN; NICOTINE POLACRILEX 2 MG GUM BUC PRN; NICOTINE POLACRILEX 2 MG LOZENGE BC PRN; POLYETHYLENE GLYCOL (HEALTHYLAX) 3350 17 GM PACKET PO PRN; guaiFENesin 600 MG TABLET.ER (FP) PO PRN; hydrOXYzine PAMOATE 25 MG CAPSULE (FP) PO PRN
[2024-05-27] MEDS: FAMOTIDINE 20 MG TABLET PO SCH (16:15)
[2024-05-27] MEDS: AMOX TR/POT CLAV 875MG/125MG TABLETS (FP) PO SCH (17:15)
[2024-05-27] MEDS: MELATONIN 5 MG TABLETS PO SCH (21:48)
[2024-05-27] MEDS: THIAMINE 100 MG TABLET PO SCH (21:49)
[2024-05-27] MEDS: IBUPROFEN 600 MG TABLET (FP) PO PRN (22:19)
[2024-05-28] MEDS: PRENATAL VITAMINS W/ FOLIC ACID TABLET (FP) PO SCH (09:45)
[2024-05-28] MEDS: HYDROCHLOROTHIAZIDE 25 MG TABLET (FP) PO SCH (09:45)
[2024-05-28] MEDS: IBUPROFEN 400 MG TABLET (FP) PO PRN (22:08)
[2024-05-29] MEDS: LIDOCAINE PATCH REMOVAL MC SCH (21:58)
[2024-06-01] MEDS: LIDOCAINE 5% TOPICAL PATCH TP PRN (09:46)
[2024-06-01] MEDS: guaiFENesin 200 MG/10 ML 10 ML UNIT-DOSE CUPS PO PRN (21:37)
[2024-06-01] MEDS: P-EPHED 60MG/TRIPROLIDI 2.5MG TABLET PO PRN (21:37)
[2024-06-02] MEDS: BENZOCAINE/MENTHOL (CHLORASEPTIC ) LOZENGE MM PRN (15:07)
[2024-06-03 11:19] VITALS: RESP 18
[2024-06-03] MEDS ORDERED: FAMOTIDINE 20 MG TABLET PO PRN (13:30)
[2024-06-03] MEDS ORDERED: HYDROCHLOROTHIAZIDE 25 MG TABLET (FP) PO PRN (13:45)
[2024-06-05 06:42] VITALS: TEMP 97.3
[2024-06-05 08:45] VITALS: BP 132/73; PULSE 102
[2024-06-05] MEDS: NALOXONE (NYS OPIOID OVERDOSE PROGRAM) 4 MG/0.1 ML SPRAY NS SCH (13:56)
== END 2024-06-05 12:48 | disposition home or self-care (01) | DRG 772 ==
LOC: YASAS 12:47 → Y5N 12:48
PROVIDERS: ADMIT Psychiatry & Neurology Pain Medicine; ATTEND Psychiatry & Neurology Pain Medicine
PROC: HZ42ZZZ Group Counseling for Substance Abuse Treatment, Cognitive-Behavioral (ICD-10-PCS; principal; 2024-05-27)
DX: F10.20 Alcohol dependence, uncomplicated (principal); F14.20 Cocaine dependence, uncomplicated; I10 Essential (primary) hypertension; M25.552 Pain in left hip; Z87.891 Personal history of nicotine dependence
CPT/HCPCS: 0241U-QW

== ENCOUNTER 2024-10-03 14:51 | Inpatient (IN) | payer OTHER ==
[2024-10-03 15:33] VITALS: BMI 37.7
[2024-10-03] MEDS ORDERED: diazePAM 5 MG TABLET PO PRN (15:44)
[2024-10-03] MEDS ORDERED: LOPERAMIDE HCL 2 MG CAPSULE PO PRN (15:45)
[2024-10-03] MEDS ORDERED: BENZOCAINE/MENTHOL (CHLORASEPTIC ) LOZENGE MM PRN (15:45)
[2024-10-03] MEDS ORDERED: BISMUTH SUBSALICYLATE 524 MG/30 ML PO PRN (15:45)
[2024-10-03] MEDS ORDERED: ONDANSETRON *ODT* 4 MG TABLET SL PRN (15:45)
[2024-10-03] MEDS ORDERED: METHOCARBAMOL 500 MG TABLET PO PRN (15:45)
[2024-10-03] MEDS ORDERED: DICYCLOMINE HCL 10 MG CAPSULE PO PRN (15:45)
[2024-10-03] MEDS ORDERED: ACETAMINOPHEN 325 MG TABLET (FP) PO PRN (15:45)
[2024-10-03] MEDS ORDERED: NALOXONE (NARCAN) HCL 4 MG/0.1 ML SPRAY NS PRN (15:45)
[2024-10-03] MEDS ORDERED: BENZONATATE 200 MG CAPSULE PO PRN (15:45)
[2024-10-03] MEDS ORDERED: hydrOXYzine PAMOATE 25 MG CAPSULE (FP) PO PRN (15:45)
[2024-10-03] MEDS ORDERED: MAGNESIUM HYDROX 2400MG/30ML ORAL SUSPENSION 30 ML CUP PO PRN (15:45)
[2024-10-03] MEDS ORDERED: POLYETHYLENE GLYCOL (HEALTHYLAX) 3350 17 GM PACKET PO PRN (15:45)
[2024-10-03] MEDS ORDERED: IBUPROFEN 400 MG TABLET (FP) PO PRN (15:45)
[2024-10-03] MEDS ORDERED: MAG HYDROX/AL HYDROX/SIMETH 30 ML UNIT-DOSE CUP PO PRN (15:45)
[2024-10-03] MEDS ORDERED: guaiFENesin 600 MG TABLET.ER (FP) PO PRN (15:45)
[2024-10-03] MEDS ORDERED: METOPROLOL TARTRATE 25 MG TABLET (FP) ONE (16:23)
[2024-10-03] MEDS ORDERED: diazePAM 5 MG TABLET ONE (16:23)
[2024-10-03] MEDS: METOPROLOL TARTRATE 25 MG TABLET (FP) PO ONE (16:37)
[2024-10-03] MEDS: diazePAM 5 MG TABLET PO ONE (16:38)
[2024-10-03] MEDS: diazePAM 5 MG TABLET PO SCH (17:36)
[2024-10-03] MEDS: IBUPROFEN 600 MG TABLET (FP) PO PRN (17:38)
[2024-10-03] MEDS: THIAMINE 100 MG TABLET PO SCH (22:54)
[2024-10-03] MEDS: MELATONIN 5 MG TABLETS PO SCH (22:54)
[2024-10-04] MEDS ORDERED: diphenhydrAMINE HCL 25 MG CAPSULE (FP) PO PRN (09:07)
[2024-10-04] MEDS: PRENATAL VITAMINS W/ FOLIC ACID TABLET (FP) PO SCH (10:15)
[2024-10-04 11:24] LABS: CHLORIDE 109 mmol/L (98-107); POTASSIUM 3.9 mmol/L (3.5-5.1); SODIUM 142 mmol/L (136-145)
[2024-10-04 11:26] LABS: HEMATOCRIT 34.8 % (35.4-49); HEMOGLOBIN 11.7 GM/dL (11.7-16.9); MCH 30.5 pg (25.7-33.7); MCHC 33.6 g/dl (32.0-35.9); MEAN CELL VOLUME 90.7 fl (80-96); PLATELET COUNT 266 10^3/uL (134-434); RBC 3.83 M/mm3 (4.00-5.60); RDW 15.6 % (11.9-15.9); WHITE BLOOD COUNT 4.5 K/mm3 (4.0-10.0)
[2024-10-04 11:29] LABS: BLOOD UREA NITROGEN 16.3 mg/dL (7-18); CALCIUM 8.9 mg/dL (8.5-10.1)
[2024-10-04 11:30] LABS: ALBUMIN 3.4 g/dl (3.4-5.0); ANION GAP 6 mmol/L (4-13); CO2 27 mmol/L (21-32); GLUCOSE,RANDOM 118 mg/dL (74-106)
[2024-10-04 11:31] LABS: CREATININE 1.2 mg/dL (0.55-1.3); SGOT/AST 55 U/L (15-37); SGPT/ALT 47 U/L (13-61)
[2024-10-04 11:33] LABS: BILIRUBIN,TOTAL 0.9 mg/dL (0.2-1); TOT PROT 6.6 g/dl (6.4-8.2)
[2024-10-04 11:34] LABS: ALK PHOS 87 U/L (45-117)
[2024-10-04] MEDS: HYDROCHLOROTHIAZIDE 25 MG TABLET (FP) PO SCH (15:14)
[2024-10-04 17:06] VITALS: RESP 18
[2024-10-04] MEDS: diazePAM 5 MG TABLET PO SCH (18:43)
[2024-10-04 20:54] VITALS: BP 118/69; PULSE 94; TEMP 97.3
[2024-10-04] MEDS ORDERED: FAMOTIDINE 20 MG TABLET PO SCH (22:00)
[2024-10-05] MEDS ORDERED: diazePAM 5 MG TABLET PO SCH (06:00)
[2024-10-06] MEDS ORDERED: diazePAM 5 MG TABLET PO ONE (06:00)
== END 2024-10-04 22:02 | disposition left against medical advice (07) | DRG 770 ==
LOC: YASAS 14:51 → Y3N 16:36
PROVIDERS: ADMIT Allergy & Immunology; ATTEND Allergy & Immunology
PROC: HZ2ZZZZ Detoxification Services for Substance Abuse Treatment (ICD-10-PCS; principal; 2024-10-03)
DX: F10.230 Alcohol dependence with withdrawal, uncomplicated (principal); F14.20 Cocaine dependence, uncomplicated; F19.282 Other psychoactive substance dependence with psychoactive substance-induced sleep disorder; F39 Unspecified mood [affective] disorder; I10 Essential (primary) hypertension; K21.9 Gastro-esophageal reflux disease without esophagitis; E78.5 Hyperlipidemia, unspecified; M25.561 Pain in right knee; M25.562 Pain in left knee; M54.50 Low back pain, unspecified; G89.29 Other chronic pain
CPT/HCPCS: 36415; 80053; 80305; 80307; 85027; 86780

== ENCOUNTER 2024-10-29 09:01 | Inpatient (IN) | payer OTHER ==
[2024-10-29] MEDS ORDERED: LOPERAMIDE HCL 2 MG CAPSULE PO PRN (10:02)
[2024-10-29] MEDS ORDERED: BISMUTH SUBSALICYLATE 524 MG/30 ML PO PRN (10:02)
[2024-10-29] MEDS ORDERED: ACETAMINOPHEN 325 MG TABLET (FP) PO PRN (10:02)
[2024-10-29] MEDS ORDERED: METHOCARBAMOL 500 MG TABLET PO PRN (10:02)
[2024-10-29] MEDS ORDERED: ONDANSETRON *ODT* 4 MG TABLET SL PRN (10:02)
[2024-10-29] MEDS ORDERED: NALOXONE (NARCAN) HCL 4 MG/0.1 ML SPRAY NS PRN (10:02)
[2024-10-29] MEDS ORDERED: POLYETHYLENE GLYCOL (HEALTHYLAX) 3350 17 GM PACKET PO PRN (10:02)
[2024-10-29] MEDS ORDERED: BENZONATATE 200 MG CAPSULE PO PRN (10:02)
[2024-10-29] MEDS ORDERED: IBUPROFEN 600 MG TABLET (FP) PO PRN (10:02)
[2024-10-29] MEDS ORDERED: DICYCLOMINE HCL 10 MG CAPSULE PO PRN (10:02)
[2024-10-29] MEDS ORDERED: IBUPROFEN 400 MG TABLET (FP) PO PRN (10:02)
[2024-10-29] MEDS ORDERED: BENZOCAINE/MENTHOL (CHLORASEPTIC ) LOZENGE MM PRN (10:02)
[2024-10-29] MEDS ORDERED: MAG HYDROX/AL HYDROX/SIMETH 30 ML UNIT-DOSE CUP PO PRN (10:02)
[2024-10-29] MEDS ORDERED: diazePAM 5 MG TABLET PO PRN (10:02)
[2024-10-29] MEDS ORDERED: hydrOXYzine PAMOATE 25 MG CAPSULE (FP) PO PRN (10:02)
[2024-10-29] MEDS ORDERED: MAGNESIUM HYDROX 2400MG/30ML ORAL SUSPENSION 30 ML CUP PO PRN (10:02)
[2024-10-29 10:20] VITALS: BMI 35.9
[2024-10-29] MEDS ORDERED: diazePAM 5 MG TABLET ONE (10:34)
[2024-10-29] MEDS: diazePAM 5 MG TABLET PO SCH (10:41)
[2024-10-29] MEDS: guaiFENesin 600 MG TABLET.ER (FP) PO PRN (17:36)
[2024-10-29] MEDS: ATORVASTATIN CA 80 MG TABLET (FP) PO SCH (22:53)
[2024-10-29] MEDS: FAMOTIDINE 20 MG TABLET PO SCH (22:54)
[2024-10-29] MEDS: THIAMINE 100 MG TABLET PO SCH (22:54)
[2024-10-29] MEDS: MELATONIN 5 MG TABLETS PO SCH (22:54)
[2024-10-30] MEDS: diazePAM 5 MG TABLET PO SCH (05:46)
[2024-10-30] MEDS: HYDROCHLOROTHIAZIDE 25 MG TABLET (FP) PO SCH (09:38)
[2024-10-30] MEDS: PRENATAL VITAMINS W/ FOLIC ACID TABLET (FP) PO SCH (09:39)
[2024-10-30 09:58] VITALS: RESP 18
[2024-10-30 10:44] LABS: CHLORIDE 108 mmol/L (98-107); POTASSIUM 3.8 mmol/L (3.5-5.1); SODIUM 140 mmol/L (136-145)
[2024-10-30 10:45] LABS: HEMOGLOBIN 11.6 g/dL (13.7-17.5); MCHC 32.2 g/dl (32.3-36.5); MEAN CELL VOLUME 92.8 fl (79.0-92.2); MEAN PLT VOLUME 10.1 fl (9.4-12.4); PLATELET COUNT 293 x10^3/uL (163-337)
[2024-10-30 10:48] LABS: CALCIUM 8.9 mg/dL (8.5-10.1)
[2024-10-30 10:49] LABS: ALBUMIN 3.5 g/dl (3.4-5.0); ANION GAP 7 mmol/L (4-13); BLOOD UREA NITROGEN 13.4 mg/dL (7-18); CO2 25 mmol/L (21-32); GLUCOSE,RANDOM 134 mg/dL (74-106)
[2024-10-30 10:52] LABS: CREATININE 1.1 mg/dL (0.55-1.3); SGOT/AST 77 U/L (15-37); SGPT/ALT 58 U/L (13-61)
[2024-10-30 10:54] LABS: BILIRUBIN,TOTAL 0.6 mg/dL (0.2-1)
[2024-10-30 10:55] LABS: ALK PHOS 70 U/L (45-117)
[2024-10-30] MEDS ORDERED: diphenhydrAMINE HCL 25 MG CAPSULE (FP) PO PRN (13:20)
[2024-10-30 17:44] VITALS: BP 124/72; PULSE 70; TEMP 98.7
[2024-10-31] MEDS ORDERED: diazePAM 5 MG TABLET PO SCH (06:00)
[2024-11-01] MEDS ORDERED: diazePAM 5 MG TABLET PO ONE (06:00)
== END 2024-10-30 19:05 | disposition left against medical advice (07) | DRG 770 ==
LOC: YASAS 09:01 → Y6N 10:19
PROVIDERS: ADMIT Allergy & Immunology; ATTEND Allergy & Immunology
PROC: HZ2ZZZZ Detoxification Services for Substance Abuse Treatment (ICD-10-PCS; principal; 2024-10-29)
DX: F10.230 Alcohol dependence with withdrawal, uncomplicated (principal); F14.20 Cocaine dependence, uncomplicated; F19.282 Other psychoactive substance dependence with psychoactive substance-induced sleep disorder; F39 Unspecified mood [affective] disorder; D41.9 Neoplasm of uncertain behavior of unspecified urinary organ; E78.5 Hyperlipidemia, unspecified; I10 Essential (primary) hypertension; K21.9 Gastro-esophageal reflux disease without esophagitis; M25.561 Pain in right knee; M25.562 Pain in left knee; M54.50 Low back pain, unspecified; G89.29 Other chronic pain; Z59.01 Sheltered homelessness
CPT/HCPCS: 36415; 80053; 80305; 80307; 85027; 86780; 93005; 93010